=== PATIENT | female | born 1980 | race Caucasian/White ===

== ENCOUNTER → 2016-09-16 | Outpatient (CLI) | payer BC, OTHER ==
[~2016-09-16] MED LIST: ACHYD1T PO; AMLO5TAB2 PO; AMLODIPINE PO; CPR250T PO; CYCL10TA9 PO; HYOS0.1216 PO; IBUP-1773 PO; KETO10TA PO; OXYC-197 PO; PHEN200T27 PO; PROP1TAB77; SULF1TAB38
--- NOTE | 2016-09-16 15:42 | Diagnostic Imaging Report ---
INDICATION: Abnormal pelvic bleeding TECHNIQUE: Multiple real time bello scale sonographic images were obtained of the pelvis transabdominally and endovaginally. CORRELATION STUDY: None FINDINGS: UTERUS/ENDOMETRIUM: Uterus measures 8.3 x 5.3 x 5.1 cm. There is slight heterogeneity about the anterior fundus and could reflect perhaps a fibroid. Endometrium is at the most upper limits of normal in thickness for a premenopausal patient at 15 mm. RIGHT OVARY: Not visualized. LEFT OVARY: 4.9 x 4.3 x 2.3 cm. Hypoechoic mass most compatible cyst at 2.4 x 1.9 x 2.3 cm. Probable additional smaller cysts and/or follicles are present, as well. Color flow is demonstrated to the left ovary. No significant free pelvic fluid. IMPRESSION: 1. Endometrial thickness is at the most upper limits of normal in thickness for a premenopausal patient. Given this along with the history of abnormal bleeding, would recommend followup pelvic ultrasound, preferably a different phase of the patient's menstrual cycle to exclude potential hyperplasia or less likely carcinoma and/or polyp. Patient had normal endometrial thickening on examination of 12/14/2015. Dictated by: Dictated on workstation # [id number]
== END ==
LOC: RAD 12:14
PROVIDERS: ATTEND Obstetrics & Gynecology
DX: N93.8 Other specified abnormal uterine and vaginal bleeding (principal)
CPT/HCPCS: 76830; 76856

== ENCOUNTER → 2017-09-12 | Outpatient (CLI) | payer BC ==
--- NOTE | 2017-09-12 13:49 | Diagnostic Imaging Report ---
INDICATION: survey, vanishing twin syndrome. FINDINGS: The previous OB ultrasound exam performed on 07/07/2017 noted a single live fetus of approximately 21 weeks gestation plus/minus 1.5 weeks. There are no abnormalities identified although the lateral ventricles, cord insertion, and three-vessel cord were not well imaged. On this exam, the fetus is again visualized. The fetus is in breech presentation. heart motion was noted and a rate of 135 BPM was recorded. There were no abnormalities identified. In particular, the ventricles, three-vessel cord, and cord insertion were felt to be within normal limits. The growth parameters were not obtained for this study. The placenta is posterior and there is no previa. The amniotic fluid volume is within normal limits. The cervix is visualized and measures 5.7 cm (normal greater than 3 cm). IMPRESSION: 1. There is a single live fetus of approximately 29 weeks 2 days gestation plus/minus 1.5 weeks. The EDC remains 11/26/2017. 2. There were no abnormalities identified. In particular, the ventricles, three-vessel cord, and cord insertion are within normal limits. TECHNIQUE: Multiple real-time grayscale images were obtained over the gravid uterus. COMPARISON: None FINDINGS: Biometrical measurements are as follows: Biparietal cm, age weeks days. Head circumference cm, age weeks days. Abdominal circumference cm, age weeks days. Femur length cm, age weeks days. Sonographic estimate age: weeks days. Sonographic estimated date of delivery: . Estimated Weight: gm (+/- gm). LMP percentile: %. heart rate: beats per minute. number: of . IMPRESSION: Dictated by: Dictated on workstation # [id number]
== END ==
LOC: RAD 08-03 10:13
PROVIDERS: ATTEND Obstetrics & Gynecology
DX: Z36.89 Encounter for other specified antenatal screening (principal); Z3A.29 29 weeks gestation of pregnancy
CPT/HCPCS: 76816

== ENCOUNTER → 2017-11-01 | Outpatient (CLI) | payer BC ==
--- NOTE | 2017-11-01 17:17 | Diagnostic Imaging Report ---
INDICATION: Measuring large for gestational age. TECHNIQUE: Multiple real-time grayscale images were obtained over the gravid uterus. COMPARISON: 09/22/2017. FINDINGS: There is a single live intrauterine in a cephalic presentation. Placenta is posteriorly located and heterogeneous in echogenicity. The JELLY is normal at 11.9 cm. Due to advanced gestational age, maternal adnexa are not visualized. Biometrical measurements are as follows: Biparietal 9.33 cm, age 38 weeks 0 days. Head circumference 34.26 cm, age 39 weeks 4 days. Abdominal circumference 34.62 cm, age 38 weeks 4 days. Femur length 7.66 cm, age 39 weeks 2 days. Sonographic estimate age: 38 weeks 6 days. Sonographic estimated date of delivery: 11/09/17. Estimated Weight: 3573 gm (+/- 522 gm). LMP percentile: 96%. heart rate: Not assessed. However, heart motion was identified per technologist's note. number: 1 of 1. IMPRESSION: 1. Single live intrauterine with an average ultrasound age of 38 weeks and 6 days. 2. weight is 96th percentile for gestational age. Dictated by: Dictated on workstation # [id number]
== END ==
LOC: RAD 12:45
PROVIDERS: ATTEND Obstetrics & Gynecology
DX: O36.63X0 Maternal care for excessive fetal growth, third trimester, not applicable or unspecified (principal); Z3A.36 36 weeks gestation of pregnancy
CPT/HCPCS: 76816

== ENCOUNTER 2017-11-10 12:15 | Inpatient (IN) | payer BC ==
[~2017-11-10] VITALS: Ht 177.8 cm; Wt 127.9 kg
[2017-11-10] MEDS ORDERED: FAMOTIDINE 20MG/2ML IV (PEPCID) IV ONE (12:30)
[2017-11-10] MEDS ORDERED: METOCLOPRAMIDE INJ 10 MG/2 ML (REGLAN) IV ONE (12:30)
[2017-11-10] MEDS ORDERED: CITRIC ACID/SOB CIT (BICITRA) 30 ML UDC PO ONE (12:30)
[2017-11-10] MEDS ORDERED: CATHETER FLUSH 10 ML SYR IV PRN (12:30)
--- NOTE | 2017-11-10 12:34 | Progress Note-Pre Operative ---
Pre-Operative Progress Note H&P Reviewed The H&P was reviewed, patient examined and no changes noted. Date Seen by Provider: Nov 10, 2017 Time Seen by Provider: 12:35 Date H&P Reviewed: Nov 10, 2017 Time H&P Reviewed: 12:30 Pre-Operative Diagnosis: chronic hypertension with exacerbation, previous section TYRA PALM DO Nov 10, 2017 12:34
[2017-11-10 12:40] VITALS: BP 150/82
[2017-11-10] MEDS ORDERED: ceFAZolin INJECTION 1,000 MG in NS (IVPB) 100 ML IV ONE (12:45)
[2017-11-10 13:05] LABS: BASOPHILS % (AUTO) 0 % (0-10); EOSINOPHILS # (AUTO) 0.1 10^3/uL (0.0-0.3); EOSINOPHILS % (AUTO) 1 % (0-10); HEMATOCRIT 35 % (35-52); LYMPHOCYTES # (AUTO) 2.2 X 10^3 (1.0-4.0); LYMPHOCYTES % (AUTO) 15 % (12-44); MEAN CORPUSCULAR HEMOGLOBIN 30 PG (25-34); MEAN CORPUSCULAR HGB CONC 35 G/DL (32-36); MEAN CORPUSCULAR VOLUME 87 FL (80-99); MEAN PLATELET VOLUME 9.9 FL (7.4-10.4); MONOCYTES # (AUTO) 0.8 X 10^3 (0.0-1.0); MONOCYTES % (AUTO) 6 % (0-12); NEUTROPHILS # (AUTO) 11.4 X 10^3 (1.8-7.8); NEUTROPHILS % (AUTO) 78 % (42-75); PLATELET COUNT 294 10^3/uL (130-400); RED BLOOD COUNT 3.98 10^6/uL (4.35-5.85); RED CELL DISTRIBUTION WIDTH 13.1 % (10.0-14.5); WHITE BLOOD COUNT 14.5 10^3/uL (4.3-11.0)
[2017-11-10 13:21] LABS: BILIRUBIN,URINE NEGATIVE (NEGATIVE); CLARITY,URINE SLIGHTLY CLOUDY; COLOR,URINE YELLOW; GLUCOSE, URINE (UA) NEGATIVE (NEGATIVE); KETONES,URINE NEGATIVE (NEGATIVE); LEUKOCYTE ESTERASE ,URINE 3+ (NEGATIVE); NITRITE,URINE NEGATIVE (NEGATIVE); PH,URINE 7 (5-9); PROTEIN,URINE NEGATIVE (NEGATIVE); UROBILINOGEN,URINE NORMAL (NORMAL)
[2017-11-10 13:23] LABS: ALANINE AMINOTRANSFERASE 21 U/L (0-55); ALBUMIN 3.6 GM/DL (3.2-4.5); ALKALINE PHOSPHATASE 133 U/L (40-136); BILIRUBIN,TOTAL 0.4 MG/DL (0.1-1.0); BUN/CREATININE RATIO 12; CALCIUM 9.5 MG/DL (8.5-10.1); CARBON DIOXIDE 22 MMOL/L (21-32); CHLORIDE 108 MMOL/L (98-107); CREATININE SERUM 0.66 MG/DL (0.60-1.30); GFR ESTIMATED > 60; GLUCOSE 83 MG/DL (70-105); POTASSIUM 3.7 MMOL/L (3.6-5.0); SODIUM 139 MMOL/L (135-145); URIC ACID 6.1 MG/DL (2.6-7.2)
[2017-11-10] MEDS: LACTATED RINGERS 1,000 ML IV PRN ×2 (13:26→15:00)
[2017-11-10 13:29] LABS: BACTERIA,URINE LARGE /HPF
[2017-11-10] MEDS ORDERED: OXYTOCIN/NORMAL SALINE 1,000 ML IV ONE (13:40)
[2017-11-10] MEDS ORDERED: fentaNYL INJECTION 100 MCG/2 ML AMP ONE (13:40)
[2017-11-10] MEDS ORDERED: INFLUENZA TRIvalent 2017-2018 0.5 ML/45 MCG SYR IM ONE (13:45)
[2017-11-10] MEDS ORDERED: D5 LR IV SOLUTION 1,000 ML IV SCH (14:55)
[2017-11-10] MEDS ORDERED: OXYTOCIN/NORMAL SALINE 500 ML IV SCH (14:55)
--- NOTE | 2017-11-10 14:55 | Cesarean Section Operative ---
Procedure Procedure Note Pre-operative Diagnosis: Marni Jeter is a 38 /Para 2 /2 ,Gestational Age 37 5/7 weeks, chronic hypertension with exacerbation, transverse presentation, advanced maternal age in multipara Post-operative Diagnosis: same, cephalic unstable presentation Procedure: [Repeat low transverse section Physician: TYRA PALM Estimated blood loss: 600 mL Disposition: stable Findings: Viable male , Apgars 8/8, weight 8#5oz, intact placenta, 3vc, normal appearing uterus, tubes, and ovaries. Indications: Marni Jeter is a 37 /Para 2 /2 ,Gestational Age 37 5/7 weeks, chronic hypertension with symptomatic exacerbation, transverse presentation, advanced maternal age in multipara. she has had elevated blood pressures treated in with worsening blood pressures despite increasing blood pressure medications and taking her off work. She has been oscar, in addition, presentation was transverse in the office yesterday. Procedure Details: The patient was seen in pre-op and the procedure was discussed with the patient in full, including the risks, benefits, and alternatives. All questions were answered. The patient was taken to the operating room and a time out was performed, verifying patient and procedure. After spinal anesthesia was placed by our anesthesia colleagues, the patient was placed in the dorsal supine with leftward tilt for uterine displacement.~ Her abdomen was then prepped and draped in the typical sterile fashion. A Pfannenstiel skin incision was made using a scalpel and carried down through the underlying fascia. The fascia was incised in the midline and tented up using Irineo clamps. On both the inferior and superior fascia side the rectus muscle was dissected off bluntly and sharply using Black scissors. The peritoneum was identified and entered bluntly in the midline. This was then stretched laterally using manual strength. After entering the abdominal cavity and confirming lack of intraperitoneal adhesions, an extra-large Luis retractor was placed and the lower uterine segment was visualized. The vesicouterine peritoneum was advanced over the lower uterine segment. A bladder flap was created with the use of Metzenbaum scissors.~ A scalpel was utilized to make a low transverse uterine incision. Amniotomy was performed with an Allis clamp with return of clear fluid. The infant's head was grasped and brought to the level of the incision. It was delivered with assistance of the silastic suction. Fundal pressure was applied and infant was delivered without difficulty. Mouth and nares were suctioned with bulb suction. After the umbilical cord was clamped and cut, the infant was handed off to the pediatric staff. A sample of cord blood was then obtained. The placenta was delivered intact via uterine massage. The uterus was cleared of all clots and debris. The uterine incision was closed using 0 Vicryl in a running locked fashion. A second imbricated layer was placed using 0 Vicryl in a running fashion as well. The gutters were cleared of all clots and debris. Again the hysterotomy site was examined and hemostasis was observed. The bilateral tubes and ovaries appeared normal. The peritoneum was closed using 3- 0 Vicryl in a running fashion. The fascia was closed with 0 Vicryl in a running fashion. The subcutaneous space was hemostatic, and irrigated. The subcutaneous space was closed with 3-0 Vicryl in several single interrupted stitches. The skin was then closed using 4-0 Monocryl in a running subcuticular fashion. The skin edges were reapproximated together and were hemostatic. A pressure dressing was applied. All sponge, lap and needle counts were correct at the end of the procedure per nursing. Vitals - Labs Vital Signs - I&O Vital Signs Date Time Temp Pulse Resp B/P (MAP) Pulse Ox O2 Delivery O2 Flow Rate FiO2 11/10/17 12:40 98.0 93 18 150/82 (104) Room Air Labs Laboratory Tests 11/10/17 12:30: Urine Color YELLOW, Urine Clarity SLIGHTLY CLOUDY, Urine pH 7, Urine Specific Antimony 1.010L, Urine Protein NEGATIVE, Urine Glucose (UA) NEGATIVE, Urine Ketones NEGATIVE, Urine Nitrite NEGATIVE, Urine Bilirubin NEGATIVE, Urine Urobilinogen NORMAL, Urine Leukocyte Esterase 3+H, Urine RBC (Auto) 2+H, Urine RBC 2-5H, Urine WBC 2-5, Urine Squamous Epithelial Cells 10-25H, Urine Crystals NONE, Urine Bacteria LARGEH, Urine Casts NONE, Urine Mucus NEGATIVE, Urine Culture Indicated NO 11/10/17 12:45: White Blood Count 14.5H, Red Blood Count 3.98L, Hemoglobin 12.0, Hematocrit 35, Mean Corpuscular Volume 87, Mean Corpuscular Hemoglobin 30, Mean Corpuscular Hemoglobin Concent 35, Red Cell Distribution Width 13.1, Platelet Count 294, Mean Platelet Volume 9.9, Neutrophils (%) (Auto) 78H, Lymphocytes (%) (Auto) 15 , Monocytes (%) (Auto) 6, Eosinophils (%) (Auto) 1, Basophils (%) (Auto) 0, Neutrophils # (Auto) 11.4H, Lymphocytes # (Auto) 2.2, Monocytes # (Auto) 0.8, Eosinophils # (Auto) 0.1, Basophils # (Auto) 0.0, Sodium Level 139, Potassium Level 3.7, Chloride Level 108H, Carbon Dioxide Level 22, Anion Gap 9, Blood Urea Nitrogen 8, Creatinine 0.66, Estimat Glomerular Filtration Rate > 60, BUN/ Creatinine Ratio 12, Glucose Level 83, Uric Acid 6.1, Calcium Level 9.5, Total Bilirubin 0.4, Aspartate Amino Transf (AST/SGOT) 20, Alanine Aminotransferase ( ALT/SGPT) 21, Alkaline Phosphatase 133, Lactate Dehydrogenase 172, Total Protein 7.0, Albumin 3.6 TYRA PALM DO Nov 10, 2017 14:55
[2017-11-10] MEDS ORDERED: TETANUS,DIPTH,PERTUSS P/F (BOOSTRIX) 0.5 ML VIAL IM SCH (15:00)
[2017-11-10] MEDS ORDERED: HYDROmorphone (DILAUDID) 2 MG/ML VIAL IVP PRN (15:00)
[2017-11-10] MEDS ORDERED: ONDANSETRON 4 MG/2 ML (SDV) Z0FRAN IVP PRN (15:00)
[2017-11-10] MEDS ORDERED: MEASLES,MUMPS,RUBELLA 1 EA INJ SC SCH (15:00)
[2017-11-10] MEDS ORDERED: PHENYLEPHRINE 100 MCG/ML 10 ML (ANESTHESIA) SYR ONE (15:01)
[2017-11-10] MEDS: KETOROLAC 30 MG/ML VIAL IVP SCH ×2 (16:09→21:16)
[2017-11-10 16:19] VITALS: BP 143/96
[2017-11-10] MEDS ORDERED: PNV#1COM11 PO (16:21)
[2017-11-10] MEDS: HYDROcodone/APAP 5 MG/325 MG (LORTAB) TAB PO PRN ×2 (17:12→22:00)
[2017-11-10 21:15] VITALS: BP 141/91
[2017-11-10] MEDS: DOCUSATE SODIUM 100 MG (COLACE) CAP PO SCH (21:16)
[2017-11-11] MEDS: KETOROLAC 30 MG/ML VIAL IVP SCH (02:25)
[2017-11-11 02:30] VITALS: BP 138/80
[2017-11-11] MEDS: HYDROcodone/APAP 5 MG/325 MG (LORTAB) TAB PO PRN ×3 (04:50→19:13)
[2017-11-11 06:18] LABS: BASOPHILS # (AUTO) 0.1 10^3/uL (0.0-0.1); BASOPHILS % (AUTO) 0 % (0-10); EOSINOPHILS # (AUTO) 0.2 10^3/uL (0.0-0.3); EOSINOPHILS % (AUTO) 1 % (0-10); HEMATOCRIT 32 % (35-52); HEMOGLOBIN 10.9 G/DL (11.5-16.0); LYMPHOCYTES # (AUTO) 2.7 X 10^3 (1.0-4.0); LYMPHOCYTES % (AUTO) 20 % (12-44); MEAN CORPUSCULAR HEMOGLOBIN 30 PG (25-34); MEAN CORPUSCULAR HGB CONC 34 G/DL (32-36); MEAN CORPUSCULAR VOLUME 88 FL (80-99); MEAN PLATELET VOLUME 10.1 FL (7.4-10.4); MONOCYTES % (AUTO) 7 % (0-12); NEUTROPHILS # (AUTO) 9.9 X 10^3 (1.8-7.8); NEUTROPHILS % (AUTO) 72 % (42-75); PLATELET COUNT 265 10^3/uL (130-400); RED CELL DISTRIBUTION WIDTH 13.2 % (10.0-14.5); WHITE BLOOD COUNT 13.8 10^3/uL (4.3-11.0)
[2017-11-11 06:20] VITALS: BP 137/79
--- NOTE | 2017-11-11 09:24 | Postpartum Progress Note ---
Post Op Post-operative Day #1 s/p RLTCS done at 37 5/7 weeks due to exacerbation of chronic hypertension. BP better since delivery Subjective: Patient is without complaints. Ambulating, voiding after cowan removed. Tolerating a regular diet without nausea or vomiting. Normal lochia. Pain is well controlled with oral pain medications. Passing flatus. breast feeding. Objective: Laboratory Tests Test 11/10/17 12:30 11/10/17 12:45 11/11/17 06:08 Range/Units Urine Color YELLOW Urine Clarity SLIGHTLY CLOUDY Urine pH 7 5-9 Urine Specific [place] 1.010 L 1.016-1.022 Urine Protein NEGATIVE NEGATIVE Urine Glucose (UA) NEGATIVE NEGATIVE Urine Ketones NEGATIVE NEGATIVE Urine Nitrite NEGATIVE NEGATIVE Urine Bilirubin NEGATIVE NEGATIVE Urine Urobilinogen NORMAL NORMAL MG/DL Urine Leukocyte Esterase 3+ H NEGATIVE Urine RBC (Auto) 2+ H NEGATIVE Urine RBC 2-5 H /HPF Urine WBC 2-5 /HPF Urine Squamous Epithelial Cells 10-25 H /HPF Urine Crystals NONE /LPF Urine Bacteria LARGE H /HPF Urine Casts NONE /LPF Urine Mucus NEGATIVE /LPF Urine Culture Indicated NO White Blood Count 14.5 H 13.8 H 4.3-11.0 10^3/uL Red Blood Count 3.98 L 3.60 L 4.35-5.85 10^6/uL Hemoglobin 12.0 10.9 L 11.5-16.0 G/DL Hematocrit 35 32 L 35-52 % Mean Corpuscular Volume 87 88 80-99 FL Mean Corpuscular Hemoglobin 30 30 25-34 PG Mean Corpuscular Hemoglobin Concent 35 34 32-36 G/DL Red Cell Distribution Width 13.1 13.2 10.0-14.5 % Platelet Count 294 265 130-400 10^3/uL Mean Platelet Volume 9.9 10.1 7.4-10.4 FL Neutrophils (%) (Auto) 78 H 72 42-75 % Lymphocytes (%) (Auto) 15 20 12-44 % Monocytes (%) (Auto) 6 7 0-12 % Eosinophils (%) (Auto) 1 1 0-10 % Basophils (%) (Auto) 0 0 0-10 % Neutrophils # (Auto) 11.4 H 9.9 H 1.8-7.8 X 10^3 Lymphocytes # (Auto) 2.2 2.7 1.0-4.0 X 10^3 Monocytes # (Auto) 0.8 1.0 0.0-1.0 X 10^3 Eosinophils # (Auto) 0.1 0.2 0.0-0.3 10^3/uL Basophils # (Auto) 0.0 0.1 0.0-0.1 10^3/uL Sodium Level 139 135-145 MMOL/L Potassium Level 3.7 3.6-5.0 MMOL/L Chloride Level 108 H 98-107 MMOL/L Carbon Dioxide Level 22 21-32 MMOL/L Anion Gap 9 5-14 MMOL/L Blood Urea Nitrogen 8 7-18 MG/DL Creatinine 0.66 0.60-1.30 MG/DL Estimat Glomerular Filtration Rate > 60 BUN/Creatinine Ratio 12 Glucose Level 83 70-105 MG/DL Uric Acid 6.1 2.6-7.2 MG/DL Calcium Level 9.5 8.5-10.1 MG/DL Total Bilirubin 0.4 0.1-1.0 MG/DL Aspartate Amino Transf (AST/SGOT) 20 5-34 U/L Alanine Aminotransferase (ALT/SGPT) 21 0-55 U/L Alkaline Phosphatase 133 40-136 U/L Lactate Dehydrogenase 172 125-220 U/L Total Protein 7.0 6.4-8.2 GM/DL Albumin 3.6 3.2-4.5 GM/DL VS - Last 72 Hours, by Label 11/10/17 11/10/17 11/10/17 11/11/17 12:40 16:19 21:15 02:30 Temp 98.0 96.4 97.9 Pulse 93 86 89 88 Resp 18 18 18 18 B/P (MAP) 150/82 (104) 143/96 (112) 141/91 (108) 138/80 (99) Pulse Ox 98 96 96 O2 Delivery Room Air Room Air Room Air Room Air 11/11/17 06:20 Temp 98.6 Pulse 83 Resp 18 B/P (MAP) 137/79 (98) Pulse Ox 96 O2 Delivery Room Air Physical Exam: General - Alert and oriented, no apparent distress Abdomen - Soft, appropriately tender to palpation, non-distended, fundus firm at umbilicus Incision - clean, dry and intact; no erythema or induration, no drainage Extremities - 1+ edema, negative Balbir's bilaterally Assessment: 1. post-operative day # 1, status post RLTCS 2. Chronic hypertension with exacerbation. Recovering well, hemodynamically stable 3. Acute blood loss anemia Plan: Routine post-operative care. Encourage breast feeding. Encourage ambulation. VTE prophylaxis: SCDs. Ferrous sulfate supplementation. Plan for discharge tomorrow Vitals - Labs Vital Signs - I&O Vital Signs Date Time Temp Pulse Resp B/P (MAP) Pulse Ox O2 Delivery O2 Flow Rate FiO2 11/11/17 06:20 98.6 83 18 137/79 (98) 96 Room Air 11/11/17 02:30 97.9 88 18 138/80 (99) 96 Room Air 11/10/17 21:15 89 18 141/91 (108) 96 Room Air 11/10/17 16:19 96.4 86 18 143/96 (112) 98 Room Air 11/10/17 12:40 98.0 93 18 150/82 (104) Room Air I & O 11/11/17 07:00 Intake Total 4420 ml Output Total 2100 ml Balance 2320 ml Labs Laboratory Tests 11/10/17 12:30: Urine Color YELLOW, Urine Clarity SLIGHTLY CLOUDY, Urine pH 7, Urine Specific [place] 1.010L, Urine Protein NEGATIVE, Urine Glucose (UA) NEGATIVE, Urine Ketones NEGATIVE, Urine Nitrite NEGATIVE, Urine Bilirubin NEGATIVE, Urine Urobilinogen NORMAL, Urine Leukocyte Esterase 3+H, Urine RBC (Auto) 2+H, Urine RBC 2-5H, Urine WBC 2-5, Urine Squamous Epithelial Cells 10-25H, Urine Crystals NONE, Urine Bacteria LARGEH, Urine Casts NONE, Urine Mucus NEGATIVE, Urine Culture Indicated NO 11/10/17 12:45: White Blood Count 14.5H, Red Blood Count 3.98L, Hemoglobin 12.0, Hematocrit 35, Mean Corpuscular Volume 87, Mean Corpuscular Hemoglobin 30, Mean Corpuscular Hemoglobin Concent 35, Red Cell Distribution Width 13.1, Platelet Count 294, Mean Platelet Volume 9.9, Neutrophils (%) (Auto) 78H, Lymphocytes (%) (Auto) 15 , Monocytes (%) (Auto) 6, Eosinophils (%) (Auto) 1, Basophils (%) (Auto) 0, Neutrophils # (Auto) 11.4H, Lymphocytes # (Auto) 2.2, Monocytes # (Auto) 0.8, Eosinophils # (Auto) 0.1, Basophils # (Auto) 0.0, Sodium Level 139, Potassium Level 3.7, Chloride Level 108H, Carbon Dioxide Level 22, Anion Gap 9, Blood Urea Nitrogen 8, Creatinine 0.66, Estimat Glomerular Filtration Rate > 60, BUN/ Creatinine Ratio 12, Glucose Level 83, Uric Acid 6.1, Calcium Level 9.5, Total Bilirubin 0.4, Aspartate Amino Transf (AST/SGOT) 20, Alanine Aminotransferase ( ALT/SGPT) 21, Alkaline Phosphatase 133, Lactate Dehydrogenase 172, Total Protein 7.0, Albumin 3.6 11/11/17 06:08: White Blood Count 13.8H, Red Blood Count 3.60L, Hemoglobin 10.9L, Hematocrit 32L , Mean Corpuscular Volume 88, Mean Corpuscular Hemoglobin 30, Mean Corpuscular Hemoglobin Concent 34, Red Cell Distribution Width 13.2, Platelet Count 265, Mean Platelet Volume 10.1, Neutrophils (%) (Auto) 72, Lymphocytes (%) (Auto) 20 , Monocytes (%) (Auto) 7, Eosinophils (%) (Auto) 1, Basophils (%) (Auto) 0, Neutrophils # (Auto) 9.9H, Lymphocytes # (Auto) 2.7, Monocytes # (Auto) 1.0, Eosinophils # (Auto) 0.2, Basophils # (Auto) 0.1 TYRA PALM DO Nov 11, 2017 09:24
[2017-11-11] MEDS ORDERED: IBUPROFEN 600 MG (MOTRIN) TAB PO ONE (10:04)
[2017-11-11 10:09] VITALS: BP 147/87
[2017-11-11] MEDS: IBUPROFEN 600 MG (MOTRIN) TAB PO SCH ×3 (10:11→21:56)
[2017-11-11] MEDS: FERROUS SULF 325 MG (IRON) TAB PO SCH (10:11)
[2017-11-11] MEDS: amLODIPine 5 MG (NORVASC) TAB PO SCH (10:12)
[2017-11-11] MEDS: DOCUSATE SODIUM 100 MG (COLACE) CAP PO SCH ×2 (10:12→19:13)
[2017-11-11 12:17] VITALS: BP 134/82
[2017-11-11 15:55] VITALS: BP 140/83
--- NOTE | 2017-11-11 16:10 | Anesthesia-Regional Post-Op ---
Regional Patient Condition Mental Status: Alert, Oriented x3 Circulation: Same as Pre-Op Headache: Absent Sensation: Full Recovery Motor Block: Absent Post Op Complications Complications None Follow Up Care/Instructions Patient Instructions None needed. Anesthesia/Patient Condition Patient is doing well, no complaints, stable vital signs, no apparent adverse anesthesia problems. No complications reported per nursing. [place] [facility] [place] No CLINTON CARLOS CRNA Nov 11, 2017 16:10
[2017-11-11 21:55] VITALS: BP 131/85
[2017-11-12] MEDS: HYDROcodone/APAP 5 MG/325 MG (LORTAB) TAB PO PRN ×2 (01:11→11:52)
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
--- OUTSIDE RECORDS SUMMARY | 2017-11-12 04:26 | XMS REPORT ---
Author Author SHERI CULLEN [facility] [employer] Address Unknown Phone Unavailable Care Team Providers Care Hairpiece Stylist Name Role Phone SHERI CULLEN CP Unavailable Allergies, Adverse Reactions, Alerts Substance Reaction Event Type N.K.D.A. Info Not Available Non Drug Allergy Problems Problem Type Condition Code Onset Dates Condition Status Assessment Dental caries K02.9 Active Problem Elevated blood pressure reading without diagnosis of hypertension 796.2 Active Problem Other general counseling and advice for contraceptive management V25.09 Active Problem Essential hypertension I10 Active Problem General counseling for initiation of other contraceptive measures V25.02 Active Assessment Essential hypertension I10 Active Problem Leukorrhea, not specified as infective 623.5 Active Problem Encounter for insertion of intrauterine contraceptive device V25.11 Active Medications Medication Code System Code Instructions Start Date End Date Status Dosage Norvasc [facility] [id number] Orally Once a day 1 tablet Amoxicillin [facility] [id number] 500 MG Orally Once a day Jul 24, 2015Jul 2 tabs po x1 then 1 tab tid x 3 days Procedures Procedure Coding System Code Date Office Visit, Est Pt., Level 3 CPT-4 68547 Jul 24, 2015 Vital Signs Date/Time: Jul 24, 2015 Temperature 98.6 F Weight 241.5 lbs Height 69 in BMI 35.66 Index Blood Pressure Diastolic 90 mmHg Blood Pressure Systolic 152 mmHg Cardiac Monitoring Heart Rate 88 bpm Results No Known Results Summary Purpose [employer] Submission
--- OUTSIDE RECORDS SUMMARY | 2017-11-12 04:27 | XMS REPORT ---
Author Author LEONARDA KIRKLAND Organization [employer] Address Unknown Phone Unavailable Care Team Providers Care De Alcholizer Name Role Phone LEONARDA KIRKLAND CP Unavailable Allergies No Known Allergies Problems Problem Type Condition Code Onset Dates Condition Status Problem Encounter for insertion of intrauterine contraceptive [...]
--- OUTSIDE RECORDS SUMMARY | 2017-11-12 04:27 | XMS REPORT ---
Author Author SHERI CULLEN [facility] [employer] Address Unknown Phone Unavailable Care Team Providers Care Zoning Administrator Name Role Phone SHERI CULLEN CP Unavailable Allergies, Adverse Reactions, Alerts Substance Reaction Event Type N.K.D.A. Info Not Available Non Drug Allergy Problems Problem Type Condition Code Onset Dates Condition Status Problem Elevated blood pressure reading without diagnosis [...] Instructions Start Date End Date [facility] D[facility] [id number] Orally Once a day 1 tablet Procedures Procedure Coding System Code Date Office Visit, Est Pt., Level 3 CPT-4 84264 Jun 23, 2015 Vital Signs Date/Time: Jun 23, 2015 Temperature 97.4 F Weight 241.7 lbs Height 69 in BMI 35.69 Index Blood Pressure Diastolic 108 mmHg Blood Pressure Systolic 162 mmHg Cardiac Monitoring Heart Rate 80 bpm Results No Known Results Summary Purpose [employer] Submission
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
--- OUTSIDE RECORDS SUMMARY | 2017-11-12 04:27 | XMS REPORT ---
Author Author ELBA WEBSTER [facility] eClinicalWorks Address Unknown Phone Unavailable Care Team Providers Care Signaling Project Engineer Name Role Phone ELBA WEBSTER CP Unavailable Allergies, Adverse Reactions, Alerts Substance [...] of other contraceptive measures V25.02 Active Assessment Other specified disorders of Eustachian tube, bilateral H69.83 Active Problem Leukorrhea, not specified as infective 623.5 Active Problem Encounter for insertion of intrauterine contraceptive device V25.11 Active Medications Medication Code System Code Instructions Start Date End Date Status Dosage Norvasc [facility] [id number] 5 Orally Once a day 1 tablet Procedures Procedure Coding System Code Date Office Visit, Est Pt., Level 2 CPT-4 00654 Aug 17, 2015 Vital Signs Date/Time: Aug 17, 2015 Temperature 98.2 F Weight 243.2 lbs Height 69 in BMI 35.91 Index Blood Pressure Diastolic 96 mmHg Blood Pressure Systolic 160 mmHg Cardiac Monitoring Heart Rate 90 bpm Results No Known Results Summary Purpose eClinicalWorks Submission
[2017-11-12 05:40] VITALS: BP 129/78
[2017-11-12] MEDS: IBUPROFEN 600 MG (MOTRIN) TAB PO SCH ×2 (05:41→11:52)
--- NOTE | 2017-11-12 09:12 | Postpartum Progress Note ---
Post Op Post-operative Day #2 s/p RLTCS Subjective: Patient is without complaints. Ambulating, voiding after cowan removed. Tolerating a regular diet without nausea or vomiting. Normal lochia. Pain is well controlled with oral pain medications. Passing flatus. breast feeding. Objective: Vital Sign - Last 12Hours 11/11/17 11/12/17 21:55 05:40 Temp 98.0 98.3 Pulse 93 80 Resp 18 18 B/P (MAP) 131/85 (100) 129/78 (95) Pulse Ox 98 98 O2 Delivery Room Air Room Air Physical Exam: General - Alert and oriented, no apparent distress Abdomen - Soft, appropriately tender to palpation, non-distended, fundus firm at umbilicus Incision - clean, dry and intact; no erythema or induration, no drainage Extremities - no edema, negative Balbir's bilaterally Assessment: 1 post-operative day # 2, status post RLTCS 2. chronic hypertension with exacerbation, stable. Recovering well, hemodynamically stable 3. Acute blood loss anemia Plan: Routine post-operative care. Encourage breast feeding. Encourage ambulation. VTE prophylaxis: SCDs. Ferrous sulfate supplementation. Plan for discharge today Vitals - Labs Vital Signs - I&O Vital Signs Date Time Temp Pulse Resp B/P (MAP) Pulse Ox O2 Delivery O2 Flow Rate FiO2 11/12/17 05:40 98.3 80 18 129/78 (95) 98 Room Air 11/11/17 21:55 98.0 93 18 131/85 (100) 98 Room Air 11/11/17 15:55 97.5 93 18 140/83 (102) 99 Room Air 11/11/17 12:17 97.1 92 20 134/82 (99) 97 11/11/17 10:09 97.4 94 20 147/87 (107) 97 Room Air TYRA PALM DO Nov 12, 2017 09:12
[2017-11-12] MEDS ORDERED: ACHD5005 PO (09:13)
[2017-11-12] MEDS ORDERED: IBUP-1773 PO (09:13)
[2017-11-12] MEDS ORDERED: DOCU100C37 PO (09:13)
--- NOTE | 2017-11-12 09:17 | Discharge Inst-Women's Service ---
Discharge Inst-Women's Serv Depart Medication/Instructions New, Converted or Re-Newed RX: RX on Chart Final Diagnosis chronic hypertension with exacerbation Advanced maternal age, multiparous previous section Consults/Follow Up Additional Follow Up: Yes (1 week for incision check with Dick, 6 week pp exam. ) Activity Activity: Activity as Tolerated Driving Instructions: No Driving for 1 Week NO SMOKING: NO SMOKING Nothing Inside Vagina: No Douching, No [place], No Tampons Diet Discharge Diet: No Restrictions Symptoms to Report to : Swelling Increased, Bleeding Excessive, Pain Increased, Fever Over 101 Degrees F, Vaginal Bleeding Increase, Cramps in Feet or Legs, Vaginal Discharge Foul For Any Problems or Questions: Contact Your Physician Skin/Wound Care Infection Signs and Symptoms: Increased Redness, Foul Odor of Wound, Increased Drainage, Skin Itchy or Has a Rash, Increased Swelling, Temperature Above 101 F Operative Area Clean and Dry: Do Not Remove Bandage Stitches/Casa/Dermabond: Dermabond Bathing Instructions: TYRA Cao DO Nov 12, 2017 09:17
[2017-11-12] MEDS: FERROUS SULF 325 MG (IRON) TAB PO SCH (10:27)
[2017-11-12] MEDS: DOCUSATE SODIUM 100 MG (COLACE) CAP PO SCH (10:27)
[2017-11-12] MEDS: amLODIPine 5 MG (NORVASC) TAB PO SCH (10:27)
[2017-11-12 11:50] VITALS: BP 141/95
== END 2017-11-12 13:15 | disposition home or self-care (01) | DRG 766 ==
LOC: LDRP 12:15
PROVIDERS: ADMIT Obstetrics & Gynecology; ATTEND Obstetrics & Gynecology
PROC: 10D00Z1 Extraction of Products of Conception, Low, Open Approach (ICD-10-PCS; principal; 2017-11-10 13:52)
DX: O10.013 Pre-existing essential hypertension complicating pregnancy, third trimester (principal); O32.2XX0 Maternal care for transverse and oblique lie, not applicable or unspecified; O99.03 Anemia complicating the puerperium; D64.9 Anemia, unspecified; O34.211 Maternal care for low transverse scar from previous cesarean delivery; Z3A.37 37 weeks gestation of pregnancy; Z37.0 Single live birth; Z23 Encounter for immunization
CPT/HCPCS: 36415; 80053; 81000; 83033; 83615; 84550; 85025; 86850; 86900; 86901; 90715; 94664

== ENCOUNTER 2018-10-09 05:17 | Emergency (ER) | payer BC ==
[~2018-10-09] VITALS: Ht 177.8 cm; Wt 117.9 kg
[~2018-10-09 05:17] MED LIST changes: +ACHD5005 PO; -AMLO5TAB2 PO; +AMLO5TAB9 PO; +DOCU100C37 PO; -OXYC-197 PO; +OXYC1TAB87 PO; +PNV#1COM11 PO
[2018-10-09] MEDS ORDERED: fentaNYL INJECTION 100 MCG/2 ML AMP IVP STA (06:17)
[2018-10-09] MEDS ORDERED: NS IV 1000 ML 1,000 ML IV STA (06:17)
[2018-10-09] MEDS ORDERED: KETOROLAC 30 MG/ML VIAL IVP STA (06:17)
[2018-10-09 06:24] LABS: BASOPHILS # (AUTO) 0.1 10^3/uL (0.0-0.1); BASOPHILS % (AUTO) 1 % (0-10); EOSINOPHILS # (AUTO) 0.1 10^3/uL (0.0-0.3); EOSINOPHILS % (AUTO) 2 % (0-10); HEMATOCRIT 45 % (35-52); HEMOGLOBIN 14.9 G/DL (11.5-16.0); LYMPHOCYTES # (AUTO) 1.9 X 10^3 (1.0-4.0); LYMPHOCYTES % (AUTO) 20 % (12-44); MEAN CORPUSCULAR HEMOGLOBIN 29 PG (25-34); MEAN CORPUSCULAR HGB CONC 33 G/DL (32-36); MEAN CORPUSCULAR VOLUME 89 FL (80-99); MEAN PLATELET VOLUME 9.8 FL (7.4-10.4); MONOCYTES # (AUTO) 0.9 X 10^3 (0.0-1.0); MONOCYTES % (AUTO) 10 % (0-12); NEUTROPHILS # (AUTO) 6.2 X 10^3 (1.8-7.8); NEUTROPHILS % (AUTO) 67 % (42-75); PLATELET COUNT 332 10^3/uL (130-400); RED CELL DISTRIBUTION WIDTH 13.4 % (10.0-14.5); WHITE BLOOD COUNT 9.2 10^3/uL (4.3-11.0)
[2018-10-09] MEDS ORDERED: ONDANSETRON 4 MG/2 ML (SDV) Z0FRAN IVP ONE (06:30)
[2018-10-09 06:42] LABS: ALANINE AMINOTRANSFERASE 27 U/L (0-55); ALBUMIN 4.7 GM/DL (3.2-4.5); ALKALINE PHOSPHATASE 101 U/L (40-136); BILIRUBIN,TOTAL 0.6 MG/DL (0.1-1.0); BUN/CREATININE RATIO 9; CALCIUM 10.1 MG/DL (8.5-10.1); CARBON DIOXIDE 21 MMOL/L (21-32); CHLORIDE 106 MMOL/L (98-107); CREATININE SERUM 0.76 MG/DL (0.60-1.30); GFR ESTIMATED > 60; GLUCOSE 110 MG/DL (70-105); POTASSIUM 4.1 MMOL/L (3.6-5.0); SODIUM 140 MMOL/L (135-145); TOTAL PROTEIN 8.2 GM/DL (6.4-8.2)
--- NOTE | 2018-10-09 06:42 | ED Abdominal Pain ---
General Chief Complaint: Abdominal/GI Problems Stated Complaint: ABD PAIN Source of Information: Patient Exam Limitations: No Limitations History of Present Illness Date Seen by Provider: Oct 09, 2018 Time Seen by Provider: 06:10 Initial Comments Here with complaint of right upper quadrant abdominal pain that started at about 430 p.m. yesterday and continued to the night. Continues told this morning. States that she did not eat much yesterday and tried to get a little better which made things worse. Does have nausea but no vomiting. Denies diarrhea. Does have history of kidney stone many years ago. Denies fever. Patient is breast-feeding. Timing/Duration: 12 Hours Severity/Quality: Moderate Location: RUQ Radiation: Back Activities at Onset: None Modifying Factors: Worsens With Eating Associated Symptoms: Back Pain; No Chest Pain, No Fever/Chills; Nausea/Vomiting ; No Shortness of Air, No Weakness Allergies and Home Medications Allergies Coded Allergies: ampicillin (Verified Allergy, Unknown, RASH, 11/10/17) Home Medications Amlodipine Besylate 5 Mg Tablet, 10 MG PO DAILY, (Reported) Patient Home Medication List Home Medication List Reviewed: Yes Review of Systems Review of Systems Constitutional: see HPI; No chills, No fever EENTM: No Symptoms Reported Respiratory: No Symptoms Reported Cardiovascular: No Symptoms Reported Gastrointestinal: See HPI Genitourinary: No Symptoms Reported; Denies Pain, Denies Urgency Musculoskeletal: see HPI Skin: no symptoms reported All Other Systems Reviewed Negative Unless Noted: Yes Past Jimkcsu-Rrmmfa-Knfikg Hx Past Med/Social Hx: Reviewed Nursing Past Med/Soc Hx Patient Social History Alcohol Use: Denies Use Recreational Drug Use: No Smoking Status: Never a Smoker Recent Foreign Travel: No Contact w/Someone Who Travel: No Recent Hopitalizations: Yes (c section 5 years ago) Seasonal Allergies Seasonal Allergies: No Past Medical History Surgeries: Yes (LEFT ANKLE X2, ESWL AND STENT IN URETER) Section, Orthopedic Respiratory: No Cardiac: Yes Hypertension Neurological: No Reproductive Disorders: No Female Reproductive Disorders: Denies Sexually Transmitted Disease: No HIV/AIDS: No Genitourinary: No Gastrointestinal: No Musculoskeletal: No Endocrine: No HEENT: No Loss of Vision: Bilateral Hearing Impairment: Denies Cancer: No Psychosocial: No Integumentary: Yes (ELBOWS/ANKLES) Psoriasis Blood Disorders: No Adverse Reaction/Blood Tranf: No (N/A) Family Medical History Reviewed Nursing Family Hx Hypertension 19 MOTHER Kidney stones 19 MOTHER G8 BROTHER G8 SISTER Myocardial infarction 19 MOTHER Thyroid disease 19 MOTHER Physical Exam Vital Signs Vital Signs - First Documented 10/09/18 06:07 Temp 95.1 Pulse 96 Resp 17 B/P (MAP) 163/105 (124) O2 Delivery Room Air Capillary Refill : Height/Weight/BMI Height: 5'10.00" Weight: 282lbs. 0.0oz. 127.102570bb; 40.5 BMI Method:Stated General Appearance: WD/WN, no apparent distress HEENT: PERRL/EOMI, pharynx normal Neck: full range of motion, supple Respiratory: lungs clear, normal breath sounds Cardiovascular: regular rate, rhythm, no murmur Peripheral Pulses: 2+ Dorsalis Pedis (R), 2+ Left Dors-Pedis (L), 2+ Radial Pulses (R), 2+ Radial Pulses (L) Gastrointestinal: soft; No guarding, No rebound; tenderness (right upper quadrant and right flank) Extremities: non-tender, normal inspection Back: normal inspection, no vertebral tenderness, CVA tenderness (R); No CVA tenderness (L) Neurologic/Psychiatric: alert, oriented x 3 Skin: normal color, warm/dry Progress/Results/Core Measures Results/Orders Lab Results Laboratory Tests Test 10/09/18 06:13 10/09/18 06:48 Range/Units White Blood Count 9.2 4.3-11.0 10^3/uL Red Blood Count 5.08 4.35-5.85 10^6/uL Hemoglobin 14.9 11.5-16.0 G/DL Hematocrit 45 35-52 % Mean Corpuscular Volume 89 80-99 FL Mean Corpuscular Hemoglobin 29 25-34 PG Mean Corpuscular Hemoglobin Concent 33 32-36 G/DL Red Cell Distribution Width 13.4 10.0-14.5 % Platelet Count 332 130-400 10^3/uL Mean Platelet Volume 9.8 7.4-10.4 FL Neutrophils (%) (Auto) 67 42-75 % Lymphocytes (%) (Auto) 20 12-44 % Monocytes (%) (Auto) 10 0-12 % Eosinophils (%) (Auto) 2 0-10 % Basophils (%) (Auto) 1 0-10 % Neutrophils # (Auto) 6.2 1.8-7.8 X 10^3 Lymphocytes # (Auto) 1.9 1.0-4.0 X 10^3 Monocytes # (Auto) 0.9 0.0-1.0 X 10^3 Eosinophils # (Auto) 0.1 0.0-0.3 10^3/uL Basophils # (Auto) 0.1 0.0-0.1 10^3/uL Sodium Level 140 135-145 MMOL/L Potassium Level 4.1 3.6-5.0 MMOL/L Chloride Level 106 98-107 MMOL/L Carbon Dioxide Level 21 21-32 MMOL/L Anion Gap 13 5-14 MMOL/L Blood Urea Nitrogen 7 7-18 MG/DL Creatinine 0.76 0.60-1.30 MG/DL Estimat Glomerular Filtration Rate > 60 BUN/Creatinine Ratio 9 Glucose Level 110 H 70-105 MG/DL Calcium Level 10.1 8.5-10.1 MG/DL Corrected Calcium 8.5-10.1 MG/DL Total Bilirubin 0.6 0.1-1.0 MG/DL Aspartate Amino Transf (AST/SGOT) 27 5-34 U/L Alanine Aminotransferase (ALT/SGPT) 27 0-55 U/L Alkaline Phosphatase 101 40-136 U/L Total Protein 8.2 6.4-8.2 GM/DL Albumin 4.7 H 3.2-4.5 GM/DL Lipase 13 8-78 U/L Serum Test, Qualitative NEGATIVE NEGATIVE Urine Color YELLOW Urine Clarity CLEAR Urine pH 8 5-9 Urine Specific [place] 1.010 L 1.016-1.022 Urine Protein NEGATIVE NEGATIVE Urine Glucose (UA) NEGATIVE NEGATIVE Urine Ketones NEGATIVE NEGATIVE Urine Nitrite NEGATIVE NEGATIVE Urine Bilirubin NEGATIVE NEGATIVE Urine Urobilinogen NORMAL NORMAL MG/DL Urine Leukocyte Esterase NEGATIVE NEGATIVE Urine RBC (Auto) NEGATIVE NEGATIVE Urine RBC 0-2 /HPF Urine WBC NONE /HPF Urine Squamous Epithelial Cells 0-2 /HPF Urine Crystals PRESENT H /LPF Urine Amorphous Sediment RARE COLT PHOSPHATE H /LPF Urine Bacteria NEGATIVE /HPF Urine Casts NONE /LPF Urine Mucus NEGATIVE /LPF Urine Culture Indicated NO My Orders Orders - ILDA JAQUEZ MD Cbc With Automated Diff (10/09/18 06:17) Comprehensive Metabolic Panel (10/09/18 06:17) Hcg,Qualitative Serum (10/09/18 06:17) Lipase (10/09/18 06:17) Ua Culture If Indicated (10/09/18 06:17) Ondansetron Injection (Zofran Injectio (10/09/18 06:30) Ns Iv 1000 Ml (Sodium Chloride 0.9%) (10/09/18 06:17) Saline Lock/Iv-Start (10/09/18 06:17) Fentanyl Injection (Sublimaze Injection (10/09/18 06:17) Ketorolac Injection (Toradol Injection) (10/09/18 06:17) Us Gallbladder 95028 (10/09/18 07:17) Medications Given in ED Current Medications Medications Dose Ordered Sig/Guillermina Route Start Time Stop Time Status Last Admin Dose Admin Ondansetron HCl 4 mg ONCE ONCE IVP 10/09/18 06:30 10/09/18 06:31 DC 10/09/18 06:30 4 MG Vital Signs/I&O 10/09/18 06:07 Temp 95.1 Pulse 96 Resp 17 B/P (MAP) 163/105 (124) O2 Delivery Room Air Progress Progress Note : Progress Note Seen and evaluated. IV, labs, UA, normal saline 1 L bolus, Zofran 4 mg IV, fentanyl 50 g IV and Toradol 30 mg IV ordered. Monitor patient. 0800: Ultrasound gallbladder ordered. Monitor patient. 0910: Patient without significant pain currently. Pending ultrasound results. 1019: Ultrasound results noted. No significant gallbladder findings. Labs do not indicate any need for further evaluation at this point. Patient does likely need outpatient HIDA scan. I have called Dr. Doyle to set up follow-up with him. We will send a copy of the chart to his office. I did discuss with the patient the need for follow-up with him for further evaluation including further gallbladder evaluation and or upper endoscopy. Patient is comfortable with this plan. Discharged home with return precautions. Patient verbalize understanding instructions and agreement with plan. Departure Impression Primary Impression: Right upper quadrant abdominal pain Disposition: 01 HOME, SELF-CARE Condition: Improved Departure-Patient Inst. Decision time for Depature: 10:39 Referrals: NO,LOCAL PHYSICIAN (PCP/Family) Primary Care Physician Patient Instructions: Acute Abdomen (Belly Pain), Adult (DC) Add. Discharge Instructions: All discharge instructions reviewed with patient and/or family. Voiced understanding. Follow-up with Dr. Doyle this week for recheck and further evaluation. Call his office today for appointment. Follow-up with your Dr. within one week for recheck and further evaluation as needed. You may take Pepcid or the generic famotidine 20 mg twice daily for the next 7 days and then once daily thereafter as needed for stomach upset. Clear liquid or light diet for 24 hours and then advance as tolerated. Avoid fatty foods. Return for worse pain, fever, vomiting or weakness, breathing problems or other concerns as needed. You may take Tylenol/acetaminophen 1000 mg every 8 hours as needed for pain. Scripts Ondansetron (Ondansetron Odt) 4 Mg Tab.rapdis 4 MG PO Q6H PRN for NAUSEA/VOMITING, #8 TAB 0 Refills Prov: ILDA JAQUEZ MD 10/09/18 Copy Copies To 1: EVELIA DOYLE TIMOTHY D MD Oct 09, 2018 06:42
[2018-10-09 06:43] LABS: LIPASE 13 U/L (8-78)
[2018-10-09 06:58] LABS: BILIRUBIN,URINE NEGATIVE (NEGATIVE); CLARITY,URINE CLEAR; COLOR,URINE YELLOW; GLUCOSE, URINE (UA) NEGATIVE (NEGATIVE); KETONES,URINE NEGATIVE (NEGATIVE); LEUKOCYTE ESTERASE ,URINE NEGATIVE (NEGATIVE); NITRITE,URINE NEGATIVE (NEGATIVE); PH,URINE 8 (5-9); PROTEIN,URINE NEGATIVE (NEGATIVE); UROBILINOGEN,URINE NORMAL (NORMAL)
[2018-10-09 07:15] LABS: AMORPHOUS SEDIMENT,UR RARE AMOR PHOSPHATE /LPF; BACTERIA,URINE NEGATIVE /HPF; RBC,URINE 0-2 /HPF; SQUAMOUS EPITHELIAL CELL,UR 0-2 /HPF
--- NOTE | 2018-10-09 08:27 | NUR ---
TO SONO PER W/C
--- NOTE | 2018-10-09 08:59 | NUR ---
BACK FROM [facility]
--- NOTE | 2018-10-09 09:02 | NUR ---
TO ROOM REPORTS PAIN OK IF SHE SITS UP. WARM BLANKETS GIVEN
--- NOTE | 2018-10-09 09:41 | Diagnostic Imaging Report ---
PROCEDURE: US Gallbladder. TECHNIQUE: Multiple real-time grayscale images were obtained over the right upper quadrant in various projections. INDICATION: Abdominal pain, liver parenchyma appeared unremarkable. Portal venous flow in the normal direction. The gallbladder appeared normal and there is no abnormal distention of intra-or extrahepatic bile ducts. The right kidney is unobstructed. The visualized portions of the pancreas unremarkable. IMPRESSION: No abnormality identified in the right upper quadrant ultrasound. Dictated by: Dictated on workstation # [id number]
[2018-10-09] MEDS ORDERED: ONDA4TAB11 PO (10:41)
[2018-10-09 10:53] VITALS: BP 161/92
== END 2018-10-09 10:53 | disposition home or self-care (01) ==
LOC: EDUNIT# 05:17 → ER 05:20
DX: R10.11 Right upper quadrant pain (principal); I10 Essential (primary) hypertension; Z82.49 Family history of ischemic heart disease and other diseases of the circulatory system; Z88.0 Allergy status to penicillin; Z87.442 Personal history of urinary calculi; Z98.890 Other specified postprocedural states
CPT/HCPCS: 36415; 76705; 80053; 81000; 83690; 84703; 85025

== ENCOUNTER 2019-08-04 15:42 | Emergency (ER) | payer BC ==
[~2019-08-04] VITALS: Ht 177 cm; Wt 115.0 kg
[~2019-08-04 15:42] MED LIST changes: +ONDA4TAB11 PO
[2019-08-04] MEDS ORDERED: LACTATED RINGERS 1,000 ML IV ONE (16:12)
[2019-08-04] MEDS ORDERED: cefTRIAXone FOR IV USE 1,000 MG in WATER (STERILE) FOR INJECTION 10 ML IV ONE (16:15)
[2019-08-04 16:27] LABS: BILIRUBIN,URINE NEGATIVE (NEGATIVE); CLARITY,URINE CLEAR; COLOR,URINE YELLOW; GLUCOSE, URINE (UA) NEGATIVE (NEGATIVE); KETONES,URINE 1+ (NEGATIVE); LEUKOCYTE ESTERASE ,URINE NEGATIVE (NEGATIVE); NITRITE,URINE NEGATIVE (NEGATIVE); PROTEIN,URINE NEGATIVE (NEGATIVE)
[2019-08-04 16:33] LABS: BACTERIA,URINE FEW /HPF; SQUAMOUS EPITHELIAL CELL,UR 25-50 /HPF
[2019-08-04 16:44] LABS: BASOPHILS % (AUTO) 0 % (0-10); EOSINOPHILS # (AUTO) 0.1 10^3/uL (0.0-0.3); EOSINOPHILS % (AUTO) 1 % (0-10); HEMATOCRIT 40 % (35-52); HEMOGLOBIN 13.4 G/DL (11.5-16.0); LYMPHOCYTES # (AUTO) 1.8 X 10^3 (1.0-4.0); LYMPHOCYTES % (AUTO) 13 % (12-44); MEAN CORPUSCULAR HEMOGLOBIN 30 PG (25-34); MEAN CORPUSCULAR HGB CONC 34 G/DL (32-36); MEAN CORPUSCULAR VOLUME 87 FL (80-99); MEAN PLATELET VOLUME 9.7 FL (7.4-10.4); MONOCYTES # (AUTO) 0.6 X 10^3 (0.0-1.0); MONOCYTES % (AUTO) 5 % (0-12); NEUTROPHILS # (AUTO) 11.3 X 10^3 (1.8-7.8); NEUTROPHILS % (AUTO) 82 % (42-75); PLATELET COUNT 320 10^3/uL (130-400); RED CELL DISTRIBUTION WIDTH 14.4 % (10.0-14.5); WHITE BLOOD COUNT 13.9 10^3/uL (4.3-11.0)
[2019-08-04] MEDS ORDERED: ONDANSETRON 4 MG/2 ML (SDV) Z0FRAN IVP ONE ×2 (17:00→19:00)
[2019-08-04 17:01] LABS: ALBUMIN 4.2 GM/DL (3.2-4.5); BILIRUBIN,TOTAL 0.4 MG/DL (0.1-1.0); BUN/CREATININE RATIO 8; CARBON DIOXIDE 19 MMOL/L (21-32); CHLORIDE 106 MMOL/L (98-107); CREATININE SERUM 0.66 MG/DL (0.60-1.30); GFR ESTIMATED > 60; GLUCOSE 105 MG/DL (70-105); POTASSIUM 3.5 MMOL/L (3.6-5.0); SODIUM 137 MMOL/L (135-145); TOTAL PROTEIN 7.6 GM/DL (6.4-8.2)
[2019-08-04 17:17] LABS: ALANINE AMINOTRANSFERASE 14 U/L (0-55); ALKALINE PHOSPHATASE 72 U/L (40-136); AMYLASE 29 U/L (25-125); LIPASE 10 U/L (8-78); MAGNESIUM 1.7 MG/DL (1.6-2.4)
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
[2019-08-04] MEDS ORDERED: ONDA4TAB11 PO (18:22)
[2019-08-04] MEDS ORDERED: RX-ONDANSETRON 4 MG ODT (ZOFRAN) PPK #4 PO STA (18:22)
[2019-08-04 19:24] VITALS: BP 145/80
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
--- OUTSIDE RECORDS SUMMARY | 2019-08-29 09:37 | XMS REPORT | CCD ---
Author Author Marni Manuel Organization [facility] Address [address] [place] [address] Phone Unavailable Care Team Providers Care Wrong Address Clerk Name Role Phone [facility] D.[facility] PP Unavailable CCM Unavailable Summary Purpose Interface Exchange Insurance Providers Payer name Policy type / Coverage type Covered alliance party ID Effective Begin Date Effective End Date Blue Cross Blue Shield Blue Cross/Bl ue Shield [id number] 2016 Unknown Family History Family History data not found Social History Social History Element Codes Description Effective Dates Marital status Unknown S anila 10/06/2016 Number of children Unknown 2 10/06/2016 Employment Unknown Curre ntly employed 10/06/[address]: 7996072 Former smoker 10/06/[address]: 663417834 Never drinks alcohol 10/06/2016 Allergies, Adverse Reactions, Alerts Substance Reaction Codes Entered Date Inactivated Date Status * NO KNOWN FOOD MARYLOU RGIES Unknown 10/06/2016 No Inactive Date Active * NO KNOWN ENVIRONME NTAL ALLERGIES Unknown 10/06/2016 No Inactive Date Active _ Unknown 10/06/2016 No Inactive Date Active Past Medical History Illness Codes Condition Status Onset Date Resolved Date Anxiety disorder, un specified ICD-9: 300.00 ICD-10: F41.9 Active 10/06/2016 Unknown Essential (primary) hypertension ICD-9: 401.9 ICD-10: I10 Active 10/06/2016 Unknown Problems Condition Codes Effectiv e Dates Condition Status Anxiety disorder, un specified ICD-9: 300.00 ICD-10: F41.9 10/06/2016 Active Essential (primary) hypertension ICD-9: 401.9 ICD-10: I10 10/06/2016 Active Medications Medication Codes Instruc tions Start Date Stop Date Sta tus Fill Instructions Zoloft 25 mg tablet RxNorm: 165011 TAKE ONE-HALF TABLET BY MOUTH DAILY FOR 7 DAYS THEN INCREASE TO TAKE ONE TABLET BY MOUTH DAILY 11/01/2016 01/29/2017 Inactive Zoloft 25 mg tablet RxNorm: 079371 Take 1/2 tab PO daily x 7 days and then increase to 1 tab PO daily 10/06/2016 10/31/2016 Inactive Biotin Plus Keratin oral RxNorm: oral No Start D ate Active Norvasc 5 mg tablet RxNorm: 081161 1 Tablet(s) PO QD No Start Date Active Provera 10 mg tablet RxNorm: 6756567 1 Tablet(s) PO QD No Start Date Active Norvasc 10 mg tablet RxNorm: 455331 oral No Start Date 10/05/2016 Inactive Medication Administered No Medication Administered data Immunizations No Immunization data Assessments Condition Codes Effectiv e Dates Anxiety disorder, unspecified ICD-10 : F41.9 ICD-9: 300.00 10/06/2016 Essential (primary) hypertension ICD -10: I10 ICD-9: 401.9 10/06/2016 Reason For Visit Reason For Visit Effective Dates Notes ~generic 10/06/2016 Esta blishing care Results No Results data Review of Systems System Result Effective Dates Constitutional No night sweats 10/06/2016 Constitutional No recent illness 10/06/2016 Constitutional No fatigue 10/06/2016 Constitutional No fever 10/06/2016 Constitutional No insomnia 10/06/2016 Constitutional No weight loss 10/06/2016 Ears/Nose/Throat/Neck No hearing loss 10/06/2016 Ears/Nose/Throat/Neck No nasal discharge 10/06/2016 Ears/Nose/Throat/Neck No sinus congestion 10/06/2016 Ears/Nose/Throat/Neck No sore throat 10/06/2016 Cardiovascular No arrhythmia 10/06/2016 Cardiovascular No chest pain/pressure 10/06/2016 Cardiovascular No edema 10/06/2016 Cardiovascular No exercise intolerance 10/06/2016 Cardiovascular No orthopnea 10/06/2016 Cardiovascular No palpitations 10/06/2016 Cardiovascular No dyspnea 10/06/2016 Cardiovascular No near-syncope/dizziness 10/06/2016 Cardiovascular No syncope 10/06/2016 Respiratory No cough 10/2016 Respiratory No dyspnea 0 10/06/2016 Respiratory No pleuritic pain 10/06/2016 Respiratory No productive sputum 10/06/2016 Respiratory No wheezing 10/06/2016 Respiratory No chest congestion 10/06/2016 Respiratory chest tightness 10/06/2016 Gastrointestinal No abdominal pain 10/06/2016 Gastrointestinal No constipation 10/06/2016 Gastrointestinal No diarrhea 10/06/2016 Gastrointestinal No gastroesophageal reflu x 10/06/2016 Gastrointestinal No melena 10/06/2016 Gastrointestinal No nausea 10/06/2016 Gastrointestinal No vomiting 10/06/2016 Dermatologic No rash 10/2016 Dermatologic No scar 10/2016 Psychiatric anxiety 10/2016 Psychiatric No depression 10/06/2016 Psychiatric stress 10/06 Psychiatric No suicidality 10/06/2016 Genitourinary/Nephrology No dysuria 10/06/2016 Genitourinary/Nephrology No nocturia 10/06/2016 Genitourinary/Nephrology No urinary incontinence 10/06/2016 Musculoskeletal No muscle weakness 10/06/2016 Musculoskeletal No myalgias 10/06/2016 Musculoskeletal No stiffness 10/06/2016 Musculoskeletal No swelling 10/06/2016 Neurologic No dizziness 10/06/2016 Neurologic No headache 0 10/06/2016 Neurologic No neck pain 10/06/2016 Neurologic No syncope Endocrine No goiter 10/2016 Endocrine No hyperglycemia 10/06/2016 Endocrine No hypoglycemia 10/06/2016 Cardiovascular hypertension 10/06/2016 Respiratory chest tightness 10/06/2016 Physical Exam Exam Name System Name It em Name Status Result Effective Dates Notes Full Exam - General Constitutional general appearance Overall: well nourished 10/06/2016 None Full Exam - General Constitutional general appearance Overall: well developed 10/06/2016 None Full Exam - General Constitutional general appearance Overall: in no acute distress 10/06/2016 None Full Exam - General Eyes conjunctiva/eyelids Overall: conjunctiva clear 10/06/2016 None Full Exam - General Eyes conjunctiva/eyelids Overall: eyelids normal 10/06/2016 None Full Exam - General Ears/Nose/Throat external ear Overall: normal appearance 10/06/2016 None Full Exam - General Ears/Nose/Throat external nose Overall: benign appearance 10/06/2016 None Full Exam - General Ears/Nose/Throat lips/teeth/gingiva Overall: benign lips 10/06/2016 None Full Exam - General Ears/Nose/Throat oral cavity/pharynx/larynx Overall: oral mucosa clear 10/06/2016 None Full Exam - General Respiratory auscultation Overall: breath sounds clear bilater ally 10/06/2016 None Full Exam - General Respiratory respiratory effort/rhythm Overall: no retractions 10/06/2016 None Full Exam - General Respiratory respiratory effort/rhythm Overall: normal rate 10/06/2016 None Full Exam - General Cardiovascular auscultation of heart Overall: regular rate 10/06/2016 None Full Exam - General Cardiovascular auscultation of heart Overall: normal heart sounds 10/06/2016 None Full Exam - General Cardiovascular auscultation of heart Overall: no murmurs 10/06/2016 None Full Exam - General Cardiovascular inspection of carotid pulses Overall: strong, bilaterally equal, no bruits 10/06/2016 None Full Exam - General Cardiovascular inspection of pedal pulses Overall: strong, equal bilaterally 10/06/2016 None Full Exam - General Cardiovascular extremities Overall: no clubbing 10/06/2016 None Full Exam - General Cardiovascular extremities Overall: No edema 10/06/2016 None Full Exam - General Cardiovascular extremities Overall: No cyanosis 10/06/2016 None Full Exam - General Lymphatic neck nodes Overall: anterior cervical chain yolis ign 10/06/2016 None Full Exam - General Lymphatic neck nodes Overall: posterior cervical chain be nign 10/06/2016 None Full Exam - General Integument inspection of skin Overall: no rash, lesions 10/06/2016 None Full Exam - General Neurologic mental status Overall: alert 7 None Full Exam - General Neurologic mental status Overall: oriented 10/06/2016 None Full Exam - General Psychiatric mood and affect Overall: normal mood and affect 10/06/2016 None Full Exam - General Neck inspection of neck Overall: normal size 10/06/2016 None Procedures No Procedures data Vital Signs Date Vital 10/06/2016 Blood Pressure 1: 168/88 Code: 8480-6 BMI: 36.0 Code: 27441-0 Heart Rate 1: 94 bpm Height: 5'10" Respiratory Rate: 22 bpm SpO2: 97% Temperature: 36.2 (C ) / 97.1 (F) Weight: 251 lbs Functional Status No Functional Status data History of Present Illness Symptom Name Status Resu lt Effective Date Notes menstrual irregularity Quality acute 10/06/2016 None menstrual irregularity Quality dysmenorrhea 10/06/2016 None menstrual irregularity Quality menometrorrhagia 10/06/2016 None hypertension Quality acu te 10/06/2016 None hypertension Quality arley alexus hypertension 10/06/2016 None hypertension Quality wor sening 10/06/2016 None hypertension Onset and Resolution ongoing 10/06/2016 None hypertension Onset of Symptom during adulthood 10/06/2016 None anxiety Quality acute 10/06/2016 None anxiety Quality stable 10/06/2016 None anxiety Onset and Resolution gradual in onset 10/06/2016 None anxiety Onset of Symptom 10 months ago 10/06/2016 None hypertension Alleviating Factors medication 10/06/2016 in past hypertension Exacerbating Factors stress 10/06/2016 None menstrual irregularity Onset and Resolutio n ongoing 10/06/2016 None anxiety Onset of Symptom during adulthood 10/06/2016 None anxiety Triggers stress 10/06/2016 None Advance Directives No Advance Directive data Encounters Encounter Performer Loca tion Codes Date () OFFICE/OUTPA TIENT VISIT NEW Diagnosis: Essential (primary) hypertension[ICD10: I10] Diagnosis: Anxiety disorder, unspecified[ICD10: F41.9] [facility] CPT-4: 61468 10/06/2016 Plan of Care Planned Activity Notes C odes Status Date Visit Diagnosis Plan: Anxiety disorder, unspecified Discussion: Will start with adding zoloft to help control her anxiety If helpful, will hopefully see her BP drop back down to goal and her chest tightness complaints, that are likely anxiety attacks, will resolve Advised home BP monitoring the next 2 weeks Recheck in clinic with log and will see how she is feeling with the zoloft Will increase her zoloft and/or her norvasc pending her home readings and report on anxiety symptoms Records requested from Dr Harvey and labs from Dr Bella for review Discussed need to update tdap as well Stressed importance that if her chest symptoms worsen, she actually feels pain, radiating pain, diaphoresis, etc that she go to the ER or call 911 immediately ICD-9 : 300.00 ICD-10 : F41.9 10/06/2016 Appointment: Adriana Manuel [address] [place], [place] [id number] NEW PATIENT 10/06/2016 Patient Education: Patient Medication Summary Completed 10/06/2016 Instructions No Instructions
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
== END 2019-08-04 19:26 | disposition home or self-care (01) ==
LOC: EDUNIT# 15:42 → ER 15:43
DX: O21.0 Mild hyperemesis gravidarum (principal); O30.002 Twin pregnancy, unspecified number of placenta and unspecified number of amniotic sacs, second trimester; O16.2 Unspecified maternal hypertension, second trimester; Z87.442 Personal history of urinary calculi; Z3A.17 17 weeks gestation of pregnancy; Z88.1 Allergy status to other antibiotic agents; Z82.49 Family history of ischemic heart disease and other diseases of the circulatory system
CPT/HCPCS: 36415; 80053; 81000; 82150; 83605; 83690; 83735; 85025; 87040; 87804; 93041; 96361; 96374; 96375; 96376

== ENCOUNTER 2019-09-02 13:17 | Outpatient (CLI) | payer BC ==
[~2019-09-02] VITALS: Ht 177.8 cm; Wt 121.1 kg
--- NOTE | 2019-09-02 13:01 | NUR ---
ANTONI SHORT presented to unit via AMBULATORY from HOME, accompanied by MOTHER, with c/o FALL. ANTONI SHORT weighed, gowned, voided, and to bed. EFHM and TOCO applied, VS taken. ANTONI SHORT oriented to bed controls, call light, TV, heat, and A/C controls.
--- NOTE | 2019-09-02 13:32 | NUR ---
DR. PALM NOTIFIED OF PT'S ARRIVAL, GESTATION, C/O. CONTINUE WITH OP PROTOCOL.
[2019-09-02] MEDS ORDERED: PREN-37 PO (13:38)
[2019-09-02] MEDS ORDERED: NITR-65 PO (13:38)
[2019-09-02] MEDS ORDERED: ASPI-586 PO (13:38)
[2019-09-02 13:41] VITALS: BP 147/84
--- NOTE | 2019-09-02 14:01 | NUR ---
ORDERS RECEIVED TO DISCHARGE PT HOME.
--- NOTE | 2019-09-02 14:55 | NUR ---
DISCHARGE PAPERS PROVIDED AND REVIEWED WITH PT, PT VERBALIZES UNDERSTANDING AND DENIES ANY QUESTIONS AT THIS TIME. PAPER SIGNED. PT'S MOTHER AT BEDSIDE.
--- NOTE | 2019-09-02 15:00 | NUR ---
PT DISCHARGED FROM -[facility] TO PERSONAL AUTO VIA AMBULATORY IN STABLE CONDITION ACC BY PT'S MOTHER.
--- NOTE | 2019-09-03 08:26 | Physician Query-Final Dx ---
JONAH PROCTOR 09/03/19 0826: Clinic Account Progress/Dx Physician Query: Please give diagnosis Please give # weeks gestation Date of Service Sep 02, 2019 at 13:17 TYRA PALM DO 09/03/19 1714: Clinic Account Progress/Dx DIAGNOSIS: Diagnosis twin , di/di 22 week gestation Fall at home JONAH PROCTOR Sep 03, 2019 08:26 TYRA PALM DO Sep 03, 2019 17:14
== END 2019-09-02 15:00 | disposition home or self-care (01) ==
LOC: WSo 13:17 → LDRP 13:18 → WSo 15:00
PROVIDERS: ATTEND Obstetrics & Gynecology
DX: O9A.212 Injury, poisoning and certain other consequences of external causes complicating pregnancy, second trimester (principal); O30.002 Twin pregnancy, unspecified number of placenta and unspecified number of amniotic sacs, second trimester; W19.XXXA Unspecified fall, initial encounter; Y92.009 Unspecified place in unspecified non-institutional (private) residence as the place of occurrence of the external cause; Z3A.22 22 weeks gestation of pregnancy
CPT/HCPCS: 99212

== ENCOUNTER 2019-10-28 11:50 | Outpatient (CLI) | payer BC ==
[~2019-10-28] VITALS: Ht 177.8 cm; Wt 129.0 kg
[2019-10-28 11:30] VITALS: BP 147/84
--- NOTE | 2019-10-28 11:30 | NUR ---
ANTONI SHORT presented to unit via from ED, accompanied by family, with c/o INCREASED BLOOD PRESSURE,DECREASED MOVEMENT. ANTONI SHORT weighed, gowned, voided, and to bed. EFHM and TOCO applied, VS taken. ANTONI SHORT oriented to bed controls, call light, TV, heat, and A/C controls.
[~2019-10-28 11:50] MED LIST changes: +ASPI-586 PO; +NITR-65 PO; +PREN-37 PO
--- NOTE | 2019-10-28 12:10 | NUR ---
dr escobar notified of patient status, situation and c/o using SBAR. new orders received.
--- NOTE | 2019-10-28 12:27 | NUR ---
lab to bedside
[2019-10-28 12:38] LABS: BASOPHILS % (AUTO) 0 % (0-10); EOSINOPHILS # (AUTO) 0.1 10^3/uL (0.0-0.3); EOSINOPHILS % (AUTO) 1 % (0-10); HEMATOCRIT 35 % (35-52); HEMOGLOBIN 11.7 G/DL (11.5-16.0); LYMPHOCYTES # (AUTO) 2.4 X 10^3 (1.0-4.0); LYMPHOCYTES % (AUTO) 17 % (12-44); MEAN CORPUSCULAR HEMOGLOBIN 30 PG (25-34); MEAN CORPUSCULAR HGB CONC 33 G/DL (32-36); MEAN CORPUSCULAR VOLUME 89 FL (80-99); MEAN PLATELET VOLUME 9.9 FL (7.4-10.4); MONOCYTES # (AUTO) 1.2 X 10^3 (0.0-1.0); MONOCYTES % (AUTO) 9 % (0-12); NEUTROPHILS # (AUTO) 10.2 X 10^3 (1.8-7.8); NEUTROPHILS % (AUTO) 73 % (42-75); PLATELET COUNT 265 10^3/uL (130-400); RED CELL DISTRIBUTION WIDTH 13.1 % (10.0-14.5); WHITE BLOOD COUNT 13.9 10^3/uL (4.3-11.0)
[2019-10-28 13:02] LABS: ALANINE AMINOTRANSFERASE 12 U/L (0-55); ALBUMIN 3.4 GM/DL (3.2-4.5); ALKALINE PHOSPHATASE 85 U/L (40-136); BILIRUBIN,TOTAL 0.2 MG/DL (0.1-1.0); BUN/CREATININE RATIO 11; CALCIUM 9.5 MG/DL (8.5-10.1); CARBON DIOXIDE 20 MMOL/L (21-32); CHLORIDE 107 MMOL/L (98-107); CREATININE SERUM 0.65 MG/DL (0.60-1.30); GFR ESTIMATED > 60; GLUCOSE 81 MG/DL (70-105); POTASSIUM 3.7 MMOL/L (3.6-5.0); SODIUM 137 MMOL/L (135-145); TOTAL PROTEIN 6.3 GM/DL (6.4-8.2); URIC ACID 5.1 MG/DL (2.6-7.2)
[2019-10-28 13:08] LABS: BAND NEUTROPHILS 3 %; EOSINOPHILS % (MANUAL) 1 %; LYMPHOCYTES % (MANUAL) 16 %; MONOCYTES % (MANUAL) 6 %; NEUTROPHILS % (MANUAL) 74 %; RBC MORPH NORMAL
[2019-10-28 13:12] VITALS: BP 143/77
--- NOTE | 2019-10-28 13:14 | NUR ---
EFM removed. NST adequate for 28 weeks gestation. Twin A baseline of 145 and Twin B baseline of 150. occasional variables noted. Accelerations noted moderate variability. occasional contraction. patient denies pain or contractions.
[2019-10-28] MEDS ORDERED: NIFE20CA PO (13:24)
--- NOTE | 2019-10-28 13:33 | NUR ---
ambulated out of WS to with d/c papers to home on bedrest with s/o and older children via private vehicle.
--- NOTE | 2019-10-30 08:59 | Physician Query-Final Dx ---
Clinic Account Progress/Dx Physician Query: Please give diagnosis Please include # weeks gestation Date of Service Oct 28, 2019 at 11:50 JONAH PROCTOR Oct 30, 2019 08:59
== END 2019-10-28 13:33 | disposition home or self-care (01) ==
LOC: WSo 11:50 → LDRP 11:50 → WSo 13:33
PROVIDERS: ATTEND Obstetrics & Gynecology
DX: O36.8120 Decreased fetal movements, second trimester, not applicable or unspecified (principal); O13.2 Gestational [pregnancy-induced] hypertension without significant proteinuria, second trimester
CPT/HCPCS: 36415; 80053; 84550; 85007; 85025; 85027; 99213

== ENCOUNTER 2019-12-03 22:33 | Outpatient (CLI) | payer BC ==
[~2019-12-03] VITALS: Ht 177.8 cm; Wt 129.2 kg
[~2019-12-03 22:33] MED LIST changes: +NIFE20CA PO
[2019-12-03 22:45] VITALS: BP 159/90
--- NOTE | 2019-12-03 22:45 | NUR ---
ANTONI SHORT presented to unit via WC from ED, accompanied by SO, with c/o CONTRACTIONS. ANTONI SHORT weighed, gowned, voided, and to bed. EFHM and TOCO applied, VS taken. ANTONI SHORT oriented to bed controls, call light, TV, heat, and A/C controls.
[2019-12-03 23:05] VITALS: BP 159/90
[2019-12-03 23:14] LABS: BILIRUBIN,URINE NEGATIVE (NEGATIVE); CLARITY,URINE SL CLOUDY; COLOR,URINE YELLOW; GLUCOSE, URINE (UA) NEGATIVE (NEGATIVE); KETONES,URINE NEGATIVE (NEGATIVE); LEUKOCYTE ESTERASE ,URINE 2+ (NEGATIVE); NITRITE,URINE NEGATIVE (NEGATIVE); PROTEIN,URINE NEGATIVE (NEGATIVE)
[2019-12-03 23:20] VITALS: BP 156/85
[2019-12-03 23:54] LABS: AMORPHOUS SEDIMENT,UR RARE AMOR PHOSPHATE /LPF; BACTERIA,URINE FEW /HPF
[2019-12-03 23:57] VITALS: BP 140/83
[2019-12-04] MEDS ORDERED: cefTRIAXone 1,000 MG IV (ROCEPHIN) VIAL ONE (00:10)
[2019-12-04] MEDS ORDERED: WATER (STERILE) FOR INJECTION 10 ML ONE (00:10)
[2019-12-04] MEDS ORDERED: CEPH-507 PO (00:12)
[2019-12-04] MEDS ORDERED: LACTATED RINGERS 1,000 ML IV SCH (00:15)
[2019-12-04] MEDS ORDERED: cefTRIAXone FOR IV USE 1,000 MG in WATER (STERILE) FOR INJECTION 10 ML IV ONE (00:15)
[2019-12-04] MEDS ORDERED: ONDANSETRON 4 MG/2 ML (SDV) Z0FRAN ONE (01:22)
--- NOTE | 2019-12-04 01:50 | NUR ---
Discharge packet given and explained, understanding voiced per pt. denies needs or concerns. Pt aware ab tx to be picked up tomorrow at [facility] pharmacy in the am and requests she call office with update on her condition. Pt aware to take ab until compeletly gone, even if condition improves and if condition does not improve, to call office for culture report, also orders to take procardia 60mg when she arrives home as scheduled for her nightly dose. Pt voices understanding to education points. Labor precautions and issues reviewed, pt voices understanding. No further concerns noted. pt ambulatory off unit at this time accompanied by so.
--- NOTE | 2019-12-04 03:22 | NUR ---
Message left on [employer] pharmacy machine for Keflex 500mg tabs po bid x7 days (14tabs).
--- NOTE | 2019-12-04 08:09 | Physician Query-Final Dx ---
Clinic Account Progress/Dx Physician Query: Please give diagnosis Please include # weeks gestation Date of Service Dec 03, 2019 at 22:33 JONAH PROCTOR Dec 04, 2019 08:09
== END 2019-12-04 01:50 | disposition home or self-care (01) ==
LOC: WSo 22:33 → LDRP 22:33 → WSo 12-04 01:50
PROVIDERS: ATTEND Obstetrics & Gynecology
DX: O60.03 Preterm labor without delivery, third trimester (principal); Z3A.33 33 weeks gestation of pregnancy
CPT/HCPCS: 81000; 87077; 87088; 87186; 96361; 96374; 99214

== ENCOUNTER → 2019-12-17 | Outpatient (CLI) | payer BC ==
[~2019-12-17] VITALS: Ht 177 cm; Wt 129.2 kg
[~2019-12-17] MED LIST changes: +CEPH-507 PO; +METF-399 PO
== END ==
LOC: PREOP 08:51
PROVIDERS: ATTEND Obstetrics & Gynecology
DX: Z01.818 Encounter for other preprocedural examination (principal)

== ENCOUNTER 2019-12-18 01:35 | Inpatient (IN) | payer BC ==
[~2019-12-18] VITALS: Ht 172.7 cm; Wt 129.2 kg
[2019-12-18] VITALS (12 sets, daily range): BP systolic 103–153; BP diastolic 68–92
[2019-12-18] MEDS ORDERED: CITRIC ACID/SOB CIT (BICITRA) 30 ML UDC ONE (02:51)
[2019-12-18] MEDS ORDERED: FAMOTIDINE 20MG/2ML IV (PEPCID) ONE (02:51)
[2019-12-18] MEDS ORDERED: METOCLOPRAMIDE INJ 10 MG/2 ML (REGLAN) ONE (02:51)
[2019-12-18] MEDS ORDERED: ceFAZolin 2 GM IV Premixed 50 ML ONE (02:52)
[2019-12-18] MEDS ORDERED: LACTATED RINGERS 1,000 ML IV ONE (02:52)
[2019-12-18] MEDS ORDERED: LACTATED RINGERS 1,000 ML IV PRN ×2 (06:49)
[2019-12-18] MEDS ORDERED: FAMOTIDINE 20MG/2ML IV (PEPCID) IV ONE (07:00)
[2019-12-18] MEDS ORDERED: ceFAZolin 2 GM IV Premixed 50 ML IV ONE (07:00)
[2019-12-18] MEDS ORDERED: CITRIC ACID/SOB CIT (BICITRA) 30 ML UDC PO ONE (07:00)
[2019-12-18] MEDS ORDERED: METOCLOPRAMIDE INJ 10 MG/2 ML (REGLAN) IV ONE (07:00)
[2019-12-18] MEDS ORDERED: BUPIVACAINE 0.25% 30 ML (SENSORCAINE) VIAL ONE (07:01)
[2019-12-18] MEDS ORDERED: fentaNYL INJECTION 100 MCG/2 ML AMP ONE (07:01)
[2019-12-18] MEDS ORDERED: OXYTOCIN PRE-MIX DRIP 1,000 ML IV ONE (07:01)
[2019-12-18 07:11] LABS: BASOPHILS % (AUTO) 0 % (0-10); EOSINOPHILS # (AUTO) 0.1 10^3/uL (0.0-0.3); EOSINOPHILS % (AUTO) 1 % (0-10); HEMATOCRIT 39 % (35-52); HEMOGLOBIN 12.8 G/DL (11.5-16.0); LYMPHOCYTES # (AUTO) 2.6 X 10^3 (1.0-4.0); LYMPHOCYTES % (AUTO) 25 % (12-44); MEAN CORPUSCULAR HEMOGLOBIN 29 PG (25-34); MEAN CORPUSCULAR HGB CONC 33 G/DL (32-36); MEAN CORPUSCULAR VOLUME 86 FL (80-99); MEAN PLATELET VOLUME 10.5 FL (7.4-10.4); MONOCYTES # (AUTO) 1.1 X 10^3 (0.0-1.0); MONOCYTES % (AUTO) 10 % (0-12); NEUTROPHILS # (AUTO) 6.6 X 10^3 (1.8-7.8); NEUTROPHILS % (AUTO) 63 % (42-75); PLATELET COUNT 271 10^3/uL (130-400); RED CELL DISTRIBUTION WIDTH 14.5 % (10.0-14.5); WHITE BLOOD COUNT 10.4 10^3/uL (4.3-11.0)
--- NOTE | 2019-12-18 07:36 | Progress Note-Pre Operative ---
Pre-Operative Progress Note H&P Reviewed The H&P was reviewed, patient examined and no changes noted. Date Seen by Provider: Dec 18, 2019 Time Seen by Provider: :15 Date H&P Reviewed: Dec 18, 2019 Time H&P Reviewed: 07:00 Pre-Operative Diagnosis: twin , previous CS, IHP, CHTN, GDM A2 TYRA PALM DO Dec 18, 2019 07:36
[2019-12-18] MEDS ORDERED: PHENYLEPHRINE 100 MCG/ML 10 ML (ANESTHESIA) SYR ONE (07:38)
[2019-12-18 08:07] LABS: ALBUMIN 3.4 GM/DL (3.2-4.5); CHLORIDE 109 MMOL/L (98-107); POTASSIUM 3.8 MMOL/L (3.6-5.0); SODIUM 137 MMOL/L (135-145)
[2019-12-18 08:08] LABS: CALCIUM 9.1 MG/DL (8.5-10.1)
[2019-12-18 08:10] LABS: GLUCOSE 103 MG/DL (70-105); TOTAL PROTEIN 6.8 GM/DL (6.4-8.2)
[2019-12-18 08:11] LABS: BILIRUBIN,TOTAL 0.2 MG/DL (0.1-1.0); CARBON DIOXIDE 16 MMOL/L (21-32)
[2019-12-18 08:13] LABS: ALKALINE PHOSPHATASE 152 U/L (40-136); CREATININE SERUM 0.67 MG/DL (0.60-1.30); GFR ESTIMATED > 60
[2019-12-18 08:14] LABS: BUN/CREATININE RATIO 15
[2019-12-18 08:16] LABS: ALANINE AMINOTRANSFERASE 7 U/L (0-55)
[2019-12-18] MEDS ORDERED: OXYTOCIN PRE-MIX DRIP 500 ML IV SCH (08:22)
--- NOTE | 2019-12-18 08:28 | Cesarean Section Operative ---
Procedure Procedure Note Pre-operative Diagnosis: Marni Jeter is a 39 /Para 12/1112 ,Gestational Age 35 5/7 weeks ;Di Di twin , previous CS, IHP, CHTN, GDM A2 Post-operative Diagnosis: same Procedure: Repeat low transverse section Physician: TYRA PALM Estimated blood loss: 700 mL Disposition: stable Findings: 0756-TWIN A- VIABLE MALE BORN APGARS 8-9, WEIGHT 6-15 0758-TWIN B-VIABLE MALE BORN WEIGHT 6-4 intact placenta, 3vc, normal appearing uterus, tubes, and ovaries. Indications:Marni Jeter is a 39 /Para 12/1112 ,Gestational Age 35 5/7 weeks ;twin , previous CS, IHP, CHTN, GDM A2; vertex transverse presentations has been managed with assistance from [facility] in [place]. NST and growth adequate and reactive. However, she has been complaining of increasing whole body itching without rash consistent with intrahepatic cholestasis. There has been increased blood pressures, mild proteinuria and decreased movements. Due to all of this, the repeat section was scheduled for today. Procedure Details: The patient was seen in pre-op and the procedure was discussed with the patient in full, including the risks, benefits, and alternatives. All questions were answered. The patient was taken to the operating room and a time out was performed, verifying patient and procedure. After spinal anesthesia was placed by our anesthesia colleagues, the patient was placed in the dorsal supine with leftward tilt for uterine displacement.~ Her abdomen was then prepped and draped in the typical sterile fashion. A Pfann enstiel skin incision was made using a scalpel and carried down through the underlying fascia. The fascia was incised in the midline and tented up using Irineo clamps. On both the inferior and superior fascia side the rectus muscle was dissected off bluntly and sharply using Black scissors. The peritoneum was identified and entered bluntly in the midline. This was then stretched laterally using manual strength. After entering the abdominal cavity and confirming lack of intraperitoneal adhesions, an extra large Luis retractor was placed and the lower uterine segment was visualized. A scalpel was utilized to make a low transverse uterine incision. Amniotomy was performed with an Allis clamp with return of clear fluid. Twin A's head was grasped and brought to the level of the incision. Fundal pressure was applied and was delivered without difficulty. Mouth and nares were suctioned with bulb suction. After the umbilical cord was clamped and cut, the infant was handed off to the pediatric staff. A sample of cord blood was then obtained. The second twin was transverse, He was brought to the incision and the membranes ruptured and the immediatley turned vertex, so it was delivered vertex. Fundal pressure was applied and was delivered without difficulty. Mouth and nares were suctioned with bulb suction. After the umbilical cord was clamped and cut, the was handed off to the pediatric staff. A sample of cord blood was then obtained. The placentas were noted to be separate, anterior and posterior. They were delivered intact via uterine massage. The uterus was cleared of all clots and debris. The uterine incision was closed using 0 Vicryl in a running locked fashion. A second imbricated layer was placed using 0 Vicryl in a running fashion as well. The bilateral tubes and ovaries appeared normal. The abdominal gutters were cleared of all clots and debris. A final check of the uterine incision showed it to be hemostatic. The peritoneum was closed using 3-0 Vicryl in a running fashion. The fascia was closed with 0 Vicryl in a running fashion. The subcutaneous space was hemostatic, and irrigated. The subcutaneous space was closed with 0 Plain in several single interrupted stitches. The skin was then closed using 4-0 Monocryl in a running subcuticular fashion. The skin edges were reapproximated together and were hemostatic. A pressure dressing was applied. All sponge, lap and needle counts were correct at the end of the procedure per nursing. Vitals - Labs Vital Signs - I&O Vital Signs Date Time Temp Pulse Resp B/P (MAP) Pulse Ox O2 Delivery O2 Flow Rate FiO2 12/18/19 07:49 36.4 95 18 98 Room Air Labs Laboratory Tests 12/18/19 06:50: White Blood Count 10.4, Red Blood Count 4.48, Hemoglobin 12.8, Hematocrit 39, Mean Corpuscular Volume 86, Mean Corpuscular Hemoglobin 29, Mean Corpuscular Hemoglobin Concent 33, Red Cell Distribution Width 14.5, Platelet Count 271, Mean Platelet Volume 10.5H, Neutrophils (%) (Auto) 63, Lymphocytes (%) (Auto) 25, Monocytes (%) (Auto) 10, Eosinophils (%) (Auto) 1, Basophils (%) (Auto) 0, Neutrophils # (Auto) 6.6, Lymphocytes # (Auto) 2.6, Monocytes # (Auto) 1.1H, Eosinophils # (Auto) 0.1, Basophils # (Auto) 0.0, Sodium Level 137, Potassium Level 3.8, Chloride Level 109H, Carbon Dioxide Level 16L, Anion Gap 12, Blood Urea Nitrogen 10, Creatinine 0.67, Estimat Glomerular Filtration Rate > 60, BUN/ Creatinine Ratio 15, Glucose Level 103, Calcium Level 9.1, Corrected Calcium 9.6, Total Bilirubin 0.2, Aspartate Amino Transf (AST/SGOT) 14, Alanine Aminotransferase (ALT/SGPT) 7, Alkaline Phosphatase 152H, Total Protein 6.8, Albumin 3.4 TYRA PALM DO Dec 18, 2019 08:28
[2019-12-18] MEDS ORDERED: TETANUS,DIPTH,PERTUSS P/F (BOOSTRIX) 0.5 ML VIAL IM SCH (08:30)
[2019-12-18] MEDS ORDERED: MEASLES,MUMPS,RUBELLA 1 EA INJ SC SCH (08:30)
[2019-12-18] MEDS ORDERED: morphine INJ 4 MG/ML 1 ML (VIAL/SYRINGE) IVP PRN (08:30)
[2019-12-18] MEDS: DOCUSATE SODIUM 100 MG (COLACE) CAP PO SCH ×3 (10:18→20:25)
--- NOTE | 2019-12-18 10:21 | NUR ---
Report received from ANANDA Lilly. care assumed of pt.
--- NOTE | 2019-12-18 12:00 | NUR ---
vs taken. reviewed POC, states understanding. s/o and Twin B @ side.
[2019-12-18] MEDS: ACETAMINOPHEN 500 MG TAB (TYLENOL) PO SCH ×2 (12:04→20:25)
[2019-12-18] MEDS: KETOROLAC 30 MG/ML VIAL IV SCH ×2 (12:05→18:49)
[2019-12-18] MEDS: ENOXAPARIN 40 MG/0.4 ML (LOVENOX) SYR SC SCH ×2 (12:06→23:56)
[2019-12-18] MEDS: amLODIPine 10 MG (NORVASC) TAB PO SCH (13:28)
[2019-12-18] MEDS: CATHETER FLUSH 10 ML SYR IV SCH ×2 (16:28→18:49)
--- NOTE | 2019-12-18 16:37 | NUR ---
FSBS 95mg/dl per finger stick. pt, and twins in room. appropriate bonding noted. cowan catheter dc'd. 400cc urine noted. v-pad and panties in place.
[2019-12-18] MEDS ORDERED: IBUPROFEN 600 MG (MOTRIN) TAB PO ONE (23:47)
[2019-12-18] MEDS: IBUPROFEN 600 MG (MOTRIN) TAB PO SCH (23:55)
[2019-12-19] MEDS: KETOROLAC 30 MG/ML VIAL IV SCH (00:31)
[2019-12-19 05:00] VITALS: BP 141/84
[2019-12-19] MEDS ORDERED: MILK OF MAGNESIA 400 MG/5 ML 30 ML UDC PO PRN (05:00)
[2019-12-19] MEDS: ACETAMINOPHEN 500 MG TAB (TYLENOL) PO SCH ×3 (05:02→23:44)
[2019-12-19 05:38] LABS: BASOPHILS % (AUTO) 0 % (0-10); EOSINOPHILS # (AUTO) 0.1 10^3/uL (0.0-0.3); EOSINOPHILS % (AUTO) 1 % (0-10); HEMATOCRIT 32 % (35-52); HEMOGLOBIN 10.5 G/DL (11.5-16.0); LYMPHOCYTES # (AUTO) 2.8 X 10^3 (1.0-4.0); LYMPHOCYTES % (AUTO) 25 % (12-44); MEAN CORPUSCULAR HEMOGLOBIN 29 PG (25-34); MEAN CORPUSCULAR HGB CONC 33 G/DL (32-36); MEAN CORPUSCULAR VOLUME 87 FL (80-99); MEAN PLATELET VOLUME 10.4 FL (7.4-10.4); MONOCYTES # (AUTO) 0.9 X 10^3 (0.0-1.0); MONOCYTES % (AUTO) 8 % (0-12); NEUTROPHILS # (AUTO) 7.4 X 10^3 (1.8-7.8); NEUTROPHILS % (AUTO) 66 % (42-75); PLATELET COUNT 232 10^3/uL (130-400); WHITE BLOOD COUNT 11.3 10^3/uL (4.3-11.0)
[2019-12-19] MEDS ORDERED: IBUPROFEN 600 MG (MOTRIN) TAB PO ONE (05:53)
[2019-12-19] MEDS: IBUPROFEN 600 MG (MOTRIN) TAB PO SCH ×3 (06:01→23:45)
[2019-12-19 08:00] VITALS: BP 152/91
--- NOTE | 2019-12-19 08:35 | Postpartum Progress Note ---
Post Op Post-operative Day #1 s/p RLTCS, Intrahepatic cholestasis, chronic hypertension, Gestational diabetes, A2, AMA.f Subjective: Patient is without complaints. Ambulating, voiding after cowan removed. Tolerating a regular diet without nausea or vomiting. Normal lochia. Pain is well controlled with oral pain medications. Passing flatus. breast feeding. Baby B is having some issues with latching. Objective: Laboratory Tests Test 12/18/19 16:36 12/19/19 05:18 Range/Units Glucometer 95 70-110 MG/DL White Blood Count 11.3 H 4.3-11.0 10^3/uL Red Blood Count 3.62 L 4.35-5.85 10^6/uL Hemoglobin 10.5 L 11.5-16.0 G/DL Hematocrit 32 L 35-52 % Mean Corpuscular Volume 87 80-99 FL Mean Corpuscular Hemoglobin 29 25-34 PG Mean Corpuscular Hemoglobin Concent 33 32-36 G/DL Red Cell Distribution Width 14.0 10.0-14.5 % Platelet Count 232 130-400 10^3/uL Mean Platelet Volume 10.4 7.4-10.4 FL Neutrophils (%) (Auto) 66 42-75 % Lymphocytes (%) (Auto) 25 12-44 % Monocytes (%) (Auto) 8 0-12 % Eosinophils (%) (Auto) 1 0-10 % Basophils (%) (Auto) 0 0-10 % Neutrophils # (Auto) 7.4 1.8-7.8 X 10^3 Lymphocytes # (Auto) 2.8 1.0-4.0 X 10^3 Monocytes # (Auto) 0.9 0.0-1.0 X 10^3 Eosinophils # (Auto) 0.1 0.0-0.3 10^3/uL Basophils # (Auto) 0.0 0.0-0.1 10^3/uL Glucose Level 94 70-105 MG/DL Vital Sign - Last 24 Hours 12/18/19 12/18/19 12/18/19 12/18/19 08:45 08:50 08:55 09:05 Resp 16 16 B/P (MAP) 103/69 (80) 110/69 (83) Pulse Ox 100 100 O2 Delivery Room Air Room Air Room Air Room Air 4/1512/18/19 12/18/19 12/18/19 09:05 09:15 09:20 09:25 Temp 37.0 Resp 18 16 18 B/P (MAP) 127/68 (87) 122/90 (101) 136/92 (107) Pulse Ox 99 100 100 O2 Delivery Room Air Room Air Room Air Room Air 12/18/19 12/18/19 12/18/19 12/18/19 09:35 09:35 12:00 16:37 Temp 36.4 36.0 Pulse 82 86 Resp 18 18 18 B/P (MAP) 141/84 (103) 147/84 (105) 153/89 (110) Pulse Ox 100 99 97 O2 Delivery Room Air Room Air Room Air Room Air 12/18/19 12/18/19 12/19/19 20:25 23:55 05:00 Temp 36.5 36.6 36.3 Pulse 84 82 82 Resp 18 18 18 B/P (MAP) 147/91 (109) 139/90 (106) 141/84 (103) Pulse Ox 97 96 97 O2 Delivery Room Air Room Air Room Air Intake and Output 12/18/19 12/18/19 12/19/19 15:00 23:00 07:00 Intake Total 1000 ml Output Total 250 ml 1300 ml Balance -250 ml -300 ml Physical Exam: General - Alert and oriented, no apparent distress Abdomen - Soft, appropriately tender to palpation, non-distended, fundus firm at umbilicus Incision - clean, dry and intact; no erythema or induration, no drainage Extremities - no edema, negative Balbir's bilaterally Assessment: 1. post-operative day # 1, status post RLCTS; chronic HTN, GDM A2, AMA, ICHP. Recovering well, hemodynamically stable 2. Mild Acute blood loss anemia Plan: Routine post-operative care. Encourage breast feeding. Encourage ambulation. VTE prophylaxis: SCDs. Ferrous sulfate supplementation. Plan for discharge Tomorrow or Monday. Vitals - Labs Vital Signs - I&O Vital Signs Date Time Temp Pulse Resp B/P (MAP) Pulse Ox O2 Delivery O2 Flow Rate FiO2 12/19/19 05:00 36.3 82 18 141/84 (103) 97 Room Air 12/18/19 23:55 36.6 82 18 139/90 (106) 96 Room Air 12/18/19 20:25 36.5 84 18 147/91 (109) 97 Room Air 12/18/19 16:37 36.0 86 18 153/89 (110) 97 Room Air 12/18/19 12:00 36.4 82 18 147/84 (105) 99 Room Air 12/18/19 09:35 18 141/84 (103) 100 Room Air 12/18/19 09:35 Room Air 12/18/19 09:25 18 136/92 (107) 100 Room Air 12/18/19 09:20 Room Air 12/18/19 09:15 16 122/90 (101) 100 Room Air 12/18/19 09:05 37.0 18 127/68 (87) 99 Room Air 12/18/19 09:05 Room Air 12/18/19 08:55 16 110/69 (83) 100 Room Air 12/18/19 08:50 Room Air 12/18/19 08:45 16 103/69 (80) 100 Room Air 12/18/19 08:35 37.0 16 112/76 (88) 100 Room Air I & O 12/19/19 07:00 Intake Total 1000 ml Output Total 1550 ml Balance -550 ml Labs Laboratory Tests 12/18/19 16:36: Glucometer 95 12/19/19 05:18: White Blood Count 11.3H, Red Blood Count 3.62L, Hemoglobin 10.5L, Hematocrit 32L , Mean Corpuscular Volume 87, Mean Corpuscular Hemoglobin 29, Mean Corpuscular Hemoglobin Concent 33, Red Cell Distribution Width 14.0, Platelet Count 232, Mean Platelet Volume 10.4, Neutrophils (%) (Auto) 66, Lymphocytes (%) (Auto) 25, Monocytes (%) (Auto) 8, Eosinophils (%) (Auto) 1, Basophils (%) (Auto) 0, Neutrophils # (Auto) 7.4, Lymphocytes # (Auto) 2.8, Monocytes # (Auto) 0.9, Eosinophils # (Auto) 0.1, Basophils # (Auto) 0.0, Glucose Level 94 TYRA PALM DO Dec 19, 2019 08:35
--- NOTE | 2019-12-19 09:15 | Anesthesia-Regional Post-Op ---
Regional Patient Condition Mental Status: Alert, Oriented x3 Circulation: Same as Pre-Op Headache: Absent Sensation: Full Recovery Motor Block: Absent Post Op Complications Complications None Follow Up Care/Instructions Patient Instructions None needed. Anesthesia/Patient Condition Patient is doing well, no complaints, stable vital signs, no apparent adverse anesthesia problems. No complications reported per nursing. FRIDA SHEIKH CRNA Dec 19, 2019 09:15
[2019-12-19] MEDS: amLODIPine 10 MG (NORVASC) TAB PO SCH (09:28)
[2019-12-19] MEDS: ENOXAPARIN 40 MG/0.4 ML (LOVENOX) SYR SC SCH ×2 (11:30→23:45)
[2019-12-19 12:00] VITALS: BP 142/90
--- NOTE | 2019-12-19 12:16 | Short Stay Summary ---
Discharge Summary Hospital Course Was the Problem List Reviewed?: Yes Final Diagnosis: Prev CS, Twins, ICHP, Chronic HTN, GDMA2, AMA Hospital Course Date of Admission: Dec 18, 2019 at 06:08 Admission Diagnosis : Family Physician/Provider: Tyra Palm DO Date of Discharge: 12/19/19 Discharge Diagnosis: Previous section, Twin Gestation, Intrahepatic cholestasis, chronic hypertension, GDM A2, AMA Acute blood loss anemia Hospital Course: section was scheduled at 35/57 weeks due to intrahepatic cholestasis, decreased movement and history of previous section, Di/Di twin gestation The section was on 12/18/19 and was uncomplicated. Her post operative course was uncomplicated. Fastin blood sugar on day 1 was 95, hgb was 10.5. Her blood pressures were labile. she had been on nifedipine prior to delivery due to chronic hypertension and risk of labor/contractions. Prior to she had been on Amlodipine. After delivery, I stopped the nifedipine and restarted the 10 mg amlodipine. Post operative pain management with toradol and the tylenol/motrin and oxycodone. Initially the baby B was not latching well, but by post day 2, she was ready to go home and babies were ready to be discharged. Labs and Pending Lab Test: Laboratory Tests 12/18/19 16:36: Glucometer 95 12/19/19 05:18: White Blood Count 11.3H, Red Blood Count 3.62L, Hemoglobin 10.5L, Hematocrit 32L , Mean Corpuscular Volume 87, Mean Corpuscular Hemoglobin 29, Mean Corpuscular Hemoglobin Concent 33, Red Cell Distribution Width 14.0, Platelet Count 232, Mean Platelet Volume 10.4, Neutrophils (%) (Auto) 66, Lymphocytes (%) (Auto) 25, Monocytes (%) (Auto) 8, Eosinophils (%) (Auto) 1, Basophils (%) (Auto) 0, Neutrophils # (Auto) 7.4, Lymphocytes # (Auto) 2.8, Monocytes # (Auto) 0.9, Eosinophils # (Auto) 0.1, Basophils # (Auto) 0.0, Glucose Level 94 Home Meds Active Reported Metformin HCl 1,000 Mg Tablet 1,500 Mg PO HS Nifedipine 20 Mg Capsule 60 Mg PO DAILY Tablet ( Vit/Iron Fumarate/FA) 1 Each Tablet 1 Each PO DAILY Assessment/Pt Instructions Patient's blood pressures are labile. Routine post op instructions. will follow up in the clinic as scheduled. Discharge Instructions Discharge Diet: No Restrictions Activity as Tolerated: Yes (no driving x 1 week, nothing in the vagina x 4 weeks, no lifting over 25 lbs) Discharge Physical Examination General Appearance: Alert HEENT: Atraumatic Respiratory: Clear to Auscultation, Normal Air Movement Cardiovascular: Regular Rate, Normal S1, Normal S2 Abdominal: Normal Bowel Sounds Allergies: Coded Allergies: ampicillin (Verified Allergy, Unknown, RASH, 11/10/17) Discharge Summary Date of Admission Dec 18, 2019 at 06:08 Date of Discharge Clinical Quality Measures DVT/VTE Risk/Contraindication: Risk Factor Score Per Nursin RFS Level Per Nursing on Admit: 2=Moderate TYRA PALM DO Dec 19, 2019 12:16
--- NOTE | 2019-12-19 14:50 | NUR ---
report received from ANANDA Ornelas.
[2019-12-19 18:35] VITALS: BP 81/90
--- NOTE | 2019-12-19 18:35 | NUR ---
VS taken, @ side.
--- NOTE | 2019-12-19 19:07 | NUR ---
report given to ANANDA Neal.
[2019-12-19 23:35] VITALS: BP 147/86
[2019-12-19] MEDS: DOCUSATE SODIUM 100 MG (COLACE) CAP PO SCH (23:44)
[2019-12-20 06:05] VITALS: BP 135/82
[2019-12-20] MEDS: IBUPROFEN 600 MG (MOTRIN) TAB PO SCH ×2 (06:06→12:56)
[2019-12-20] MEDS: ACETAMINOPHEN 500 MG TAB (TYLENOL) PO SCH (10:29)
[2019-12-20] MEDS: amLODIPine 10 MG (NORVASC) TAB PO SCH (10:29)
[2019-12-20 10:30] VITALS: BP 137/88
[2019-12-20] MEDS: DOCUSATE SODIUM 100 MG (COLACE) CAP PO SCH (10:30)
--- NOTE | 2019-12-20 10:30 | NUR ---
initial shift assessment completed, see interventions for further.
--- NOTE | 2019-12-20 11:40 | Postpartum Progress Note ---
Post Op Post-operative Day # 2 s/p RLTCS twin Subjective: Patient is without complaints. Ambulating, voiding after cowan removed. Tolerating a regular diet without nausea or vomiting. Normal lochia. Pain is well controlled with oral pain medications. Passing flatus. breast feeding. Objective: 12/20/19 12/20/19 06:05 10:30 Temp 36.4 36.2 Pulse 80 90 Resp 18 18 B/P (MAP) 135/82 (99) 137/88 (104) Pulse Ox 98 95 O2 Delivery Room Air Physical Exam: General - Alert and oriented, no apparent distress Abdomen - Soft, appropriately tender to palpation, non-distended, fundus firm at umbilicus Incision - clean, dry and intact; no erythema or induration, no drainage Extremities - no edema, negative Balbir's bilaterally Assessment: 1. post-operative day # 2, status post 2 s/p RLTCS; twins, Chronic HTN, GDM. Recovering well, hemodynamically stable Acute blood loss anemia Plan: Routine post-operative care. Encourage breast feeding. Encourage ambulation. VTE prophylaxis: SCDs. Ferrous sulfate supplementation. Plan for discharge Vitals - Labs Vital Signs - I&O Vital Signs Date Time Temp Pulse Resp B/P (MAP) Pulse Ox O2 Delivery O2 Flow Rate FiO2 12/20/19 10:30 36.2 90 18 137/88 (104) 95 Room Air 12/20/19 06:05 36.4 80 18 135/82 (99) 98 12/19/19 23:35 36.5 83 18 147/86 (106) 97 12/19/19 18:35 36.8 93 20 81/90 (87) 97 Room Air 12/19/19 12:00 36.9 85 20 142/90 (107) 97 Room Air TYRA PALM DO Dec 20, 2019 11:40
[2019-12-20] MEDS ORDERED: AMLO10TA7 PO (11:43)
[2019-12-20] MEDS ORDERED: IBUP-844 PO (11:43)
[2019-12-20] MEDS ORDERED: OXYC5TAB96 PO (11:43)
[2019-12-20] MEDS ORDERED: ACET-93 PO (11:43)
--- NOTE | 2019-12-20 12:10 | NUR ---
pt dismissed to private vehicle via w/c with ANANDA Mcwilliams, twins and @ side. Twins secured in rear facing car seats. pt stable with no sx's of distress noted.
[2019-12-20] MEDS: ENOXAPARIN 40 MG/0.4 ML (LOVENOX) SYR SC SCH (12:56)
--- NOTE | 2019-12-20 12:56 | NUR ---
dismissal instructions given, verbalizes understanding. reviewed follow up appointments and Rx's. signature page signed, placed on chart.
== END 2019-12-20 13:10 | disposition home or self-care (01) | DRG 787 ==
LOC: LDRP 06:08
PROVIDERS: ADMIT Obstetrics & Gynecology; ATTEND Obstetrics & Gynecology
PROC: 10D00Z1 Extraction of Products of Conception, Low, Open Approach (ICD-10-PCS; principal; 2019-12-18 07:33)
DX: O30.043 Twin pregnancy, dichorionic/diamniotic, third trimester (principal); O34.211 Maternal care for low transverse scar from previous cesarean delivery; O26.62 Liver and biliary tract disorders in childbirth; O24.425 Gestational diabetes mellitus in childbirth, controlled by oral hypoglycemic drugs; O10.92 Unspecified pre-existing hypertension complicating childbirth; O76 Abnormality in fetal heart rate and rhythm complicating labor and delivery; O90.81 Anemia of the puerperium; D62 Acute posthemorrhagic anemia; Z37.2 Twins, both liveborn; Z3A.35 35 weeks gestation of pregnancy
CPT/HCPCS: 36415; 80053; 82947; 82962; 85025; 86850; 86900; 86901; 88307; 94664

== ENCOUNTER 2020-02-08 10:59 | Emergency (ER) | payer BC ==
[~2020-02-08] VITALS: Ht 175.2 cm; Wt 117.0 kg
[~2020-02-08 10:59] MED LIST changes: +ACET-93 PO; +AMLO10TA7 PO; +IBUP-844 PO; +OXYC5TAB96 PO
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
[2020-02-08 11:43] LABS: BASOPHILS # (AUTO) 0.1 10^3/uL (0.0-0.1); BASOPHILS % (AUTO) 1 % (0-10); EOSINOPHILS # (AUTO) 0.1 10^3/uL (0.0-0.3); EOSINOPHILS % (AUTO) 1 % (0-10); HEMATOCRIT 43 % (35-52); HEMOGLOBIN 14.3 G/DL (11.5-16.0); LYMPHOCYTES # (AUTO) 1.8 X 10^3 (1.0-4.0); LYMPHOCYTES % (AUTO) 19 % (12-44); MEAN CORPUSCULAR HEMOGLOBIN 29 PG (25-34); MEAN CORPUSCULAR HGB CONC 33 G/DL (32-36); MEAN CORPUSCULAR VOLUME 86 FL (80-99); MEAN PLATELET VOLUME 9.6 FL (7.4-10.4); MONOCYTES # (AUTO) 0.5 X 10^3 (0.0-1.0); MONOCYTES % (AUTO) 6 % (0-12); NEUTROPHILS # (AUTO) 6.9 X 10^3 (1.8-7.8); NEUTROPHILS % (AUTO) 74 % (42-75); PLATELET COUNT 324 10^3/uL (130-400); RED CELL DISTRIBUTION WIDTH 14.9 % (10.0-14.5); WHITE BLOOD COUNT 9.4 10^3/uL (4.3-11.0)
[2020-02-08] MEDS ORDERED: ONDANSETRON 4 MG/2 ML (SDV) Z0FRAN IVP ONE (11:45)
[2020-02-08] MEDS ORDERED: NS IV 1000 ML 1,000 ML IV SCH (11:45)
[2020-02-08] MEDS ORDERED: KETOROLAC 30 MG/ML VIAL IVP ONE (11:45)
--- NOTE | 2020-02-08 11:48 | ED GU-Female ---
General Stated Complaint: BACK PAIN / VOMITING Source: patient Exam Limitations: no limitations History of Present Illness Date Seen by Provider: Feb 08, 2020 Time Seen by Provider: 11:45 Initial Comments ER with sudden onset right flank pain that radiates around to the front. History of kidney infection and this feels similar. She did have some nausea and vomiting. Timing/Duration: yesterday, getting worse Severity/Quality: moderate Location: right flank Radiation: none Activities at Onset: none Prior Genitourinary Problems: none Associated Symptoms: nausea/vomiting Allergies and Home Medications Allergies Coded Allergies: ampicillin (Verified Allergy, Unknown, RASH, 11/10/17) Home Medications Acetaminophen 500 Mg Tablet, 1,000 MG PO Q8HR Prescribed by: TYRA PALM on 12/20/19 1143 Amlodipine Besylate 10 Mg Tablet, 10 MG PO DAILY Prescribed by: TYRA PALM on 12/20/19 1143 Ibuprofen 600 Mg Tablet, 600 MG PO Q6HR Prescribed by: TYRA PALM on 12/20/19 1143 Oxycodone HCl 5 Mg Tablet, 5 MG PO Q4HR PRN for PAIN-SEVERE (8-10) Prescribed by: TYRA PALM on 12/20/19 1143 Vit/Iron Fumarate/FA 1 Each Tablet, 1 EACH PO DAILY, (Reported) Patient Home Medication List Home Medication List Reviewed: Yes Review of Systems Review of Systems Constitutional: see HPI EENTM: see HPI Respiratory: no symptoms reported Cardiovascular: no symptoms reported Genitourinary: see HPI Musculoskeletal: no symptoms reported Skin: no symptoms reported Psychiatric/Neurological: No Symptoms Reported Endocrine: No Symptoms Reported Hematologic/Lymphatic: No Symptoms Reported Past Xkllvua-Gnkinj-Vqitkx Hx Patient Social History Type Used: Cigarettes Former Smoker, Quit: Dec 16, 2008 2nd Hand Smoke Exposure: No Recent Foreign Travel: No Contact w/Someone Who Travel: No Recent Hopitalizations: Yes (c section 5 years ago) Immunizations Up To Date Date of Influenza Vaccine: Jul 28, 2019 Seasonal Allergies Seasonal Allergies: No Past Medical History Surgeries: Yes (IUD REMOVAL, KIDNEY STONES, ANKLE X2) Section, Orthopedic Respiratory: No Cardiac: Yes Hypertension Neurological: No Reproductive Disorders: No Female Reproductive Disorders: Denies 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 Sexually Transmitted Disease: No HIV/AIDS: No Genitourinary: Yes Bladder Infection, Kidney Stones Gastrointestinal: No Musculoskeletal: No Endocrine: No HEENT: No Loss of Vision: Bilateral Hearing Impairment: Denies Cancer: No Psychosocial: No Integumentary: Yes (ELBOWS/ANKLES) Psoriasis Blood Disorders: No Adverse Reaction/Blood Tranf: No (N/A) Family Medical History Hypertension 19 MOTHER Kidney stones 19 MOTHER G8 BROTHER G8 SISTER Myocardial infarction 19 MOTHER Thyroid disease 19 MOTHER Physical Exam Vital Signs Vital Signs - First Documented 02/08/20 11:20 Temp 36.6 Pulse 82 Resp 18 B/P (MAP) 172/98 (122) Pulse Ox 97 O2 Delivery Room Air Capillary Refill : Height, Weight, BMI Height: 5'10.00" Weight: 260lbs. 0oz. 117.689969lz; 43.31 BMI Method:Stated General Appearance: WD/WN, no apparent distress HEENT: PERRL/EOMI, normal ENT inspection Neck: non-tender, full range of motion Respiratory: no respiratory distress, no accessory muscle use Gastrointestinal: normal bowel sounds, non tender, soft Extremities: normal range of motion, non-tender Neurologic/Psychiatric: alert, normal mood/affect, oriented x 3 Skin: normal color, warm/dry Progress/Results/Core Measures Suspected Sepsis SIRS Temperature: Pulse: Respiratory Rate: Laboratory Tests 02/08/20 11:30: White Blood Count 9.4 Blood Pressure / Mean: Laboratory Tests 02/08/20 11:30: Creatinine 0.81, Platelet Count 324, Total Bilirubin 0.3 Results/Orders Lab Results Laboratory Tests Test 02/08/20 11:25 02/08/20 11:30 Range/Units Urine Color YELLOW Urine Clarity CLEAR Urine pH 7.0 5-9 Urine Specific [place] 1.020 1.016-1.022 Urine Protein TRACE H NEGATIVE Urine Glucose (UA) NEGATIVE NEGATIVE Urine Ketones NEGATIVE NEGATIVE Urine Nitrite NEGATIVE NEGATIVE Urine Bilirubin NEGATIVE NEGATIVE Urine Urobilinogen 0.2 < = 1.0 MG/DL Urine Leukocyte Esterase TRACE H NEGATIVE Urine RBC (Auto) TRACE-I NEGATIVE Urine RBC 5-10 H /HPF Urine WBC RARE /HPF Urine Squamous Epithelial Cells 5-10 /HPF Urine Crystals NONE /LPF Urine Bacteria TRACE /HPF Urine Casts NONE /LPF Urine Mucus NEGATIVE /LPF Urine Culture Indicated NO White Blood Count 9.4 4.3-11.0 10^3/uL Red Blood Count 5.00 4.35-5.85 10^6/uL Hemoglobin 14.3 11.5-16.0 G/DL Hematocrit 43 35-52 % Mean Corpuscular Volume 86 80-99 FL Mean Corpuscular Hemoglobin 29 25-34 PG Mean Corpuscular Hemoglobin Concent 33 32-36 G/DL Red Cell Distribution Width 14.9 H 10.0-14.5 % Platelet Count 324 130-400 10^3/uL Mean Platelet Volume 9.6 7.4-10.4 FL Neutrophils (%) (Auto) 74 42-75 % Lymphocytes (%) (Auto) 19 12-44 % Monocytes (%) (Auto) 6 0-12 % Eosinophils (%) (Auto) 1 0-10 % Basophils (%) (Auto) 1 0-10 % Neutrophils # (Auto) 6.9 1.8-7.8 X 10^3 Lymphocytes # (Auto) 1.8 1.0-4.0 X 10^3 Monocytes # (Auto) 0.5 0.0-1.0 X 10^3 Eosinophils # (Auto) 0.1 0.0-0.3 10^3/uL Basophils # (Auto) 0.1 0.0-0.1 10^3/uL Sodium Level 141 135-145 MMOL/L Potassium Level 3.8 3.6-5.0 MMOL/L Chloride Level 110 H 98-107 MMOL/L Carbon Dioxide Level 20 L 21-32 MMOL/L Anion Gap 11 5-14 MMOL/L Blood Urea Nitrogen 16 7-18 MG/DL Creatinine 0.81 0.60-1.30 MG/DL Estimat Glomerular Filtration Rate > 60 BUN/Creatinine Ratio 20 Glucose Level 121 H 70-105 MG/DL Calcium Level 9.5 8.5-10.1 MG/DL Corrected Calcium 9.1 8.5-10.1 MG/DL Total Bilirubin 0.3 0.1-1.0 MG/DL Aspartate Amino Transf (AST/SGOT) 24 5-34 U/L Alanine Aminotransferase (ALT/SGPT) 25 0-55 U/L Alkaline Phosphatase 89 40-136 U/L Total Protein 7.8 6.4-8.2 GM/DL Albumin 4.5 3.2-4.5 GM/DL My Orders Orders - JESSICA HURTADO APRN Ua Culture If Indicated (02/08/20 11:34) Cbc With Automated Diff (02/08/20 11:34) Comprehensive Metabolic Panel (02/08/20 11:34) Ed Iv/Invasive Line Start (02/08/20 11:34) Abdomen/Kub 1view (02/08/20 11:41) Ct Abd/Pelvis Wo(Kidney Stone) (02/08/20 11:41) Ketorolac Injection (Toradol Injection) (02/08/20 11:45) Ns Iv 1000 Ml (Sodium Chloride 0.9%) (02/08/20 11:45) Ondansetron Injection (Zofran Injectio (02/08/20 11:45) Medications Given in ED Current Medications Medications Dose Ordered Sig/Guillermina Route Start Time Stop Time Status Last Admin Dose Admin Ketorolac Tromethamine 15 mg ONCE ONCE IVP 02/08/20 11:45 02/08/20 11:46 DC 02/08/20 11:52 15 MG Ondansetron HCl 8 mg ONCE ONCE IVP 02/08/20 11:45 02/08/20 11:46 DC 02/08/20 11:52 8 MG Vital Signs/I&O 02/08/20 11:20 Temp 36.6 Pulse 82 Resp 18 B/P (MAP) 172/98 (122) Pulse Ox 97 O2 Delivery Room Air Capillary Refill : Diagnostic Imaging Diagonstic Imaging: Xray Comments NAME: ANTONI SHORT [facility] REC#: [id number] PT STATUS: REG ER : 1980 PHYSICIAN: JESSICA HURTADO [employer]RICULUM AND INSTRUCTION DIRECTOR ADMIT DATE: 02/08/20/ER Draft Date of Exam:02/08/20 CT ABD/PELVIS WO(KIDNEY STONE) PROCEDURE: CT urinary tract, rule out kidney stone. TECHNIQUE: Multiple contiguous axial images were obtained through the abdomen and pelvis without the use of intravenous contrast. Auto Exposure Controls were utilized during the CT exam to meet ALARA standards for radiation dose reduction. DATE: February 08, 2020. COMPARISON: Ultrasound October 09, 2018. CT abdomen and pelvis August 05, 2012. INDICATION: 39-year-old female, right-sided abdominal pain. FINDINGS: There are limitations for evaluation of the abdominal organs, neoplastic processes, abscess, and limited evaluation of the vasculature relating to the lack of intravenous contrast. The visualized portions of the lung bases are clear. The heart is not enlarged. There is no pericardial effusion. The liver is normal in size and contour. The gallbladder is unremarkable. There is no intrahepatic or extrahepatic bile duct dilation. The main pancreatic duct is not abnormally dilated. Limited noncontrast evaluation of the pancreas is unremarkable. The spleen is normal in size. The adrenal glands are unremarkable. There are several nonobstructing renal stones bilaterally. There is moderate right hydronephrosis and moderate right hydroureter. There is a stone in the mid to distal right ureter measuring 6.5 mm in size in axial image 92. There is no additionally identified ureteral stone. Urinary bladder is unremarkable. There are pelvic calcifications compatible with phleboliths. The intestinal tract is not distended. There is no evidence of acute appendicitis. There is a very small hiatal hernia. There is no free intraperitoneal air. There is no drainable fluid collection. There is no free pelvic fluid. There is rectus muscle diastases. There is a small fat-containing anterior abdominal wall hernia. There are mild atherosclerotic calcifications. There is no identified abnormally enlarged lymph node in the abdomen or pelvis meeting CT size criteria for adenopathy. There is advanced disc degenerative change at L5-S1. There is no identified acute bony abnormality. IMPRESSION: CT ABDOMEN AND PELVIS. 1. 6.5 mm stone in the mid to distal right ureter with moderate right hydroureteronephrosis. 2. Multiple additional nonobstructing renal stones bilaterally. 3. Severe disc degenerative changes at L5-S1. 4. Rectus muscle diastases with small fat-containing anterior abdominal wall hernia. Departure Communication (Admissions) 1234-Feeling better at this time, ready to go home. Impression Primary Impression: Right ureteral stone Disposition: 01 HOME, SELF-CARE Condition: Stable Departure-Patient Inst. Decision time for Depature: 12:21 Referrals: NO,LOCAL PHYSICIAN (PCP) Primary Care Physician CHACE LEVI MD Patient Instructions: Kidney Stones (DC) Add. Discharge Instructions: 1. Nausea medication as directed. Use the Flomax (which is often used for men with large prostates) to help facilitate stone passage. Take the ibuprofen and the oxycodone for pain control. Return to ER for any intolerable pain, fevers, uncontrollable vomiting. If you are unable to pass the stone on your own by Monday, call Dr. Levi to make an appointment to be seen. Scripts Ondansetron (Ondansetron Odt) 4 Mg Tab.rapdis 8 MG PO Q4H PRN for NAUSEA/VOMITING, #30 TAB Prov: JESSICA HURTADO APRN 02/08/20 Cefuroxime Axetil (Cefuroxime) 250 Mg Tablet 250 MG PO BID, #10 TAB Prov: JESSICA HURTADO APRN 02/08/20 Ibuprofen (Ibuprofen) 800 Mg Tablet 800 MG PO Q8H PRN for PAIN, #30 TAB 0 Refills Prov: JESSICA HURTADO APRN 02/08/20 Tamsulosin HCl (Flomax) 0.4 Mg Cap 0.4 MG PO DAILY, #10 CAP Prov: JESSICA HURTADO APRN 02/08/20 Copy Copies To 1: CHACE LEVI MD, PETER J APRN Feb 08, 2020 11:48
[2020-02-08 11:49] LABS: BILIRUBIN,URINE NEGATIVE (NEGATIVE); CLARITY,URINE CLEAR; COLOR,URINE YELLOW; GLUCOSE, URINE (UA) NEGATIVE (NEGATIVE); KETONES,URINE NEGATIVE (NEGATIVE); LEUKOCYTE ESTERASE ,URINE TRACE (NEGATIVE); NITRITE,URINE NEGATIVE (NEGATIVE); PROTEIN,URINE TRACE (NEGATIVE)
[2020-02-08 11:51] LABS: ALBUMIN 4.5 GM/DL (3.2-4.5); CHLORIDE 110 MMOL/L (98-107); POTASSIUM 3.8 MMOL/L (3.6-5.0); SODIUM 141 MMOL/L (135-145)
[2020-02-08 11:52] LABS: CALCIUM 9.5 MG/DL (8.5-10.1)
[2020-02-08 11:53] LABS: GLUCOSE 121 MG/DL (70-105)
[2020-02-08 11:54] LABS: TOTAL PROTEIN 7.8 GM/DL (6.4-8.2)
[2020-02-08 11:55] LABS: BACTERIA,URINE TRACE /HPF; WBC,URINE RARE /HPF
[2020-02-08 11:55] LABS: BILIRUBIN,TOTAL 0.3 MG/DL (0.1-1.0); CARBON DIOXIDE 20 MMOL/L (21-32)
[2020-02-08 11:57] LABS: ALKALINE PHOSPHATASE 89 U/L (40-136); CREATININE SERUM 0.81 MG/DL (0.60-1.30); GFR ESTIMATED > 60
[2020-02-08 11:58] LABS: BUN/CREATININE RATIO 20
[2020-02-08 12:00] LABS: ALANINE AMINOTRANSFERASE 25 U/L (0-55)
--- NOTE | 2020-02-08 12:27 | Diagnostic Imaging Report ---
PROCEDURE: CT urinary tract, rule out kidney stone. TECHNIQUE: Multiple contiguous axial images were obtained through the abdomen and pelvis without the use of intravenous contrast. Auto Exposure Controls were utilized during the CT exam to meet ALARA standards for radiation dose reduction. DATE: February 08, 2020. COMPARISON: Ultrasound October 09, 2018. CT abdomen and pelvis August 05, 2012. INDICATION: 39-year-old female, right-sided abdominal pain. FINDINGS: There are limitations for evaluation of the abdominal organs, neoplastic processes, abscess, and limited evaluation of the vasculature relating to the lack of intravenous contrast. The visualized portions of the lung bases are clear. The heart is not enlarged. There is no pericardial effusion. The liver is normal in size and contour. The gallbladder is unremarkable. There is no intrahepatic or extrahepatic bile duct dilation. The main pancreatic duct is not abnormally dilated. Limited noncontrast evaluation of the pancreas is unremarkable. The spleen is normal in size. The adrenal glands are unremarkable. There are several nonobstructing renal stones bilaterally. There is moderate right hydronephrosis and moderate right hydroureter. There is a stone in the mid to distal right ureter measuring 6.5 mm in size in axial image 92. There is no additionally identified ureteral stone. Urinary bladder is unremarkable. There are pelvic calcifications compatible with phleboliths. The intestinal tract is not distended. There is no evidence of acute appendicitis. There is a very small hiatal hernia. There is no free intraperitoneal air. There is no drainable fluid collection. There is no free pelvic fluid. There is rectus muscle diastases. There is a small fat-containing anterior abdominal wall hernia. There are mild atherosclerotic calcifications. There is no identified abnormally enlarged lymph node in the abdomen or pelvis meeting CT size criteria for adenopathy. There is advanced disc degenerative change at L5-S1. There is no identified acute bony abnormality. IMPRESSION: CT ABDOMEN AND PELVIS. 1. 6.5 mm stone in the mid to distal right ureter with moderate right hydroureteronephrosis. 2. Multiple additional nonobstructing renal stones bilaterally. 3. Severe disc degenerative changes at L5-S1. 4. Rectus muscle diastases with small fat-containing anterior abdominal wall hernia. Dictated by: Dictated on workstation # [id number]
--- NOTE | 2020-02-08 12:28 | Diagnostic Imaging Report ---
EXAMINATION: Abdominal radiographs, single supine view. 2 images. DATE: February 08, 2020. CLINICAL INDICATION: 39-year-old female, right abdominal pain. COMPARISON: Same day CT abdomen and pelvis February 08, 2020. COMMENTS: There are pelvic calcifications compatible with phleboliths. The 6.5 mm stone in the mid distal right ureter is visible and near the inferior margin of the sacroiliac joints in its craniocaudal extent. There are multiple nonobstructing renal stones bilaterally. There are no abnormally distended gas-filled segments of bowel. IMPRESSION: 1. The 6.5 mm right ureteral stone is visible near the craniocaudal level of the inferior aspect of the right sacroiliac joint. 2. Nonobstructing renal stones bilaterally. 3. Unremarkable bowel gas pattern. Dictated by: Dictated on workstation # [id number]
[2020-02-08] MEDS ORDERED: ONDA4TAB11 PO (12:39)
[2020-02-08] MEDS ORDERED: TMSL.4C PO (12:39)
[2020-02-08] MEDS ORDERED: OXYC-471 PO (12:39)
[2020-02-08] MEDS ORDERED: CEFU250T80 PO (12:39)
[2020-02-08] MEDS ORDERED: IBUP-1780 PO (12:39)
[2020-02-08 12:50] VITALS: BP 153/84
== END 2020-02-08 12:50 | disposition home or self-care (01) ==
LOC: EDUNIT# 10:59 → ER 11:00
DX: N13.2 Hydronephrosis with renal and ureteral calculous obstruction (principal); I10 Essential (primary) hypertension; Z88.0 Allergy status to penicillin; Z87.891 Personal history of nicotine dependence; Z82.49 Family history of ischemic heart disease and other diseases of the circulatory system
CPT/HCPCS: 36415; 74018; 74176; 80053; 81000; 85025

== ENCOUNTER → 2020-11-17 | Outpatient (CLI) | payer BC ==
[~2020-11-17] MED LIST changes: +AMLO-250 PO; +AMLO-251 PO; -AMLO10TA7 PO; -AMLO5TAB9 PO; +CEFU250T80 PO; +IBUP-1780 PO; +OXC5T PO; +OXYC1TAB11 PO; -OXYC5TAB96 PO; +TMSL.4C PO
--- NOTE | 2020-11-18 06:31 | Diagnostic Imaging Report ---
INDICATION: Routine screening. Comparison is made with prior mammogram from 02/19/2015. 2-D and 3-D bilateral screening mammography was performed with a Computer Aided Detection (CAD) system. 3-D tomosynthesis was also performed and reviewed. FINDINGS: Both breasts are heterogeneously dense, limiting the sensitivity of mammography. No spiculated mass or malignant appearing microcalcifications are seen. Occasional benign calcifications are noted. Axillae are unremarkable. IMPRESSION: No mammographic features suspicious for malignancy are identified. ACR BI-RADS Category 2: Benign findings. Result letter will be mailed to the patient. Note: At least 10% of breast cancer is not imaged by mammography. Dictated by: Dictated on workstation # [id number]
== END ==
LOC: RAD 15:01
PROVIDERS: ATTEND Obstetrics & Gynecology
DX: Z12.31 Encounter for screening mammogram for malignant neoplasm of breast (principal)
CPT/HCPCS: 77063; 77067

== ENCOUNTER 2021-10-31 12:05 | Day surgery (SDC) | payer OTHER ==
[2021-10-31] VITALS (10 sets, daily range): BP systolic 147–169; BP diastolic 73–94
[~2021-10-31] VITALS: Ht 175 cm; Wt 117.0 kg
[~2021-10-31 12:05] MED LIST changes: +CYCL10TA25 PO; -CYCL10TA9 PO
--- NOTE | 2021-10-31 12:17 | ED Abdominal Pain ---
General Stated Complaint: ABD PAIN / VOMTING Source of Information: Patient Exam Limitations: No Limitations (MILLIE MCGILL MD) Source of Information: Patient Exam Limitations: No Limitations (BRISEIDA TURCIOS MED STUDENT) History of Present Illness Date Seen by Provider: Oct 31, 2021 Time Seen by Provider: 12:17 (MILLIE MCGILL MD) Initial Comments Mrs. Short is a 41 yo female with PMH of kidney stones and umbilical hernia that presents with abdominal pain. States that the pain started about 0930 this morning when she woke up. She noticed that her mouth was watering a little bit and then the pain came on. States the pain is in the bilateral upper quadrants of her abdomen. States it radiates from the middle mostly to the L side. She has not tried to take anything to help the pain. Nothing specific makes the pain worse. She has not been able to keep anything down this morning and has been vomiting a bunch. This does not feel like previous kidney stones. She states she does have an umbilical hernia that has been tender for a while now. She denies any other symptoms, no fevers, chest pain, SOB, changes with urination or stooling. States she is not , is on control and a recent negative preg test. (BRISEIDA TURCIOS MED STUDENT) Allergies and Home Medications Allergies Coded Allergies: ampicillin (Verified Allergy, Unknown, RASH, 11/10/17) Patient Home Medication List Home Medication List Reviewed: Yes (MILLIE MCGILL MD) Amlodipine Besylate (Amlodipine Besylate) 10 Mg Tablet, 10 MG PO DAILY Prescribed by: TYRA PALM on 12/20/19 1143 Docusate Sodium (Colace) 100 Mg Capsule, 100 MG PO BID Prescribed by: EVELIA GORDON on 10/31/21 1635 Hydrocodone/Acetaminophen (Hydrocodone-Acetamin 5-325 mg) 1 Each Tablet, 1 EACH PO Q4H PRN for PAIN-MODERATE (5-7) Prescribed by: EVELIA GORDON on 10/31/21 1636 Ibuprofen (Ibu) 600 Mg Tablet, 600 MG PO Q6HR Prescribed by: TYRA PALM on 12/20/19 1143 Ibuprofen (Ibuprofen) 800 Mg Tablet, 800 MG PO Q8H PRN for PAIN Prescribed by: JESSICA HURTADO on 02/08/20 1239 Ondansetron (Ondansetron Odt) 4 Mg Tab.rapdis, 8 MG PO Q4H PRN for NAUSEA/VOMITING Prescribed by: JESSICA HURTADO on 02/08/20 1239 Vit/Iron Fumarate/FA ( Tablet) 1 Each Tablet, 1 EACH PO DAILY, (Reported) Entered as Reported by: PATRICK ULLOA on 09/02/19 1338 Discontinued Medications Acetaminophen (Acetaminophen) 500 Mg Tablet, 1,000 MG PO Q8HR Prescribed by: TYRA PALM on 12/20/19 1143 Cefuroxime Axetil (Cefuroxime) 250 Mg Tablet, 250 MG PO BID Prescribed by: JESSICA HURTADO on 02/08/20 1239 Oxycodone HCl/Acetaminophen (Oxycodone-Acetaminophen 5-325) 1 Each Tablet, 1 EACH PO Q4H PRN for PAIN-MODERATE Prescribed by: JESSICA HURTADO on 02/08/20 1239 Oxycodone Hcl (Oxyir Tablet) 5 Mg Tablet, 5 MG PO Q4HR PRN for PAIN-SEVERE (8- 10) Prescribed by: TYRA PALM on 12/20/19 1143 Tamsulosin HCl (Flomax) 0.4 Mg Cap, 0.4 MG PO DAILY Prescribed by: JESSICA HURTADO on 02/08/20 1239 Review of Systems Review of Systems Constitutional: No chills, No fever EENTM: No Blurred Vision, No Double Vision Respiratory: Denies Cough, Denies Shortness of Air Cardiovascular: Denies Chest Pain, Denies Edema Gastrointestinal: Abdominal Pain (Epigastric, Umbilical, RUQ, LUQ); Denies Blood Streaked Stools, Denies Constipated, Denies Diarrhea; Nausea, Vomiting Genitourinary: Denies Burning, Denies Frequency Musculoskeletal: No joint pain, No joint swelling Skin: No pruritus, No rash Psychiatric/Neurological: Denies Headache, Denies Numbness (BRISEIDA TURCIOS MED STUDENT) Past Kaknzla-Vuvtxt-Rbpeto Hx Immunizations Up To Date Tetanus Booster (TDap): Unknown (MILLIE MCGILL MD) Seasonal Allergies Seasonal Allergies: No (MILLIE MCGILL MD) Past Medical History Surgeries: Yes (IUD REMOVAL, KIDNEY STONES, ANKLE X2) Section, Orthopedic Respiratory: No Cardiac: Yes Hypertension Neurological: No Reproductive Disorders: No Female Reproductive Disorders: Denies 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 Sexually Transmitted Disease: No HIV/AIDS: No Genitourinary: Yes Bladder Infection, Kidney Stones Gastrointestinal: No Musculoskeletal: No Endocrine: No HEENT: No Loss of Vision: Bilateral Hearing Impairment: Denies Cancer: No Psychosocial: No Integumentary: Yes (ELBOWS/ANKLES) Psoriasis Blood Disorders: No Adverse Reaction/Blood Tranf: No (N/A) (MILLIE MCGILL MD) Family Medical History Hypertension 19 MOTHER Kidney stones 19 MOTHER G8 BROTHER G8 SISTER Myocardial infarction 19 MOTHER Thyroid disease 19 MOTHER Physical Exam Vital Signs Vital Signs - First Documented 10/31/21 12:12 Temp 36.7 Pulse 82 Resp 18 Pulse Ox 98 O2 Delivery Room Air (BRISEIDA TURCIOS MED STUDENT) Vital Signs Capillary Refill : (MILLIE MCGILL MD) Height/Weight/BMI Height: 5'10.00" Weight: 260lbs. 0oz. 117.632401sn; 38.00 BMI Method:Stated Gastrointestinal: other (soft abdomen, diffusely tender; small firm umbilical hernia that is not reducible, even after IV Morphine. positive bowel sounds) (MILLIE MCGILL MD) General Appearance: WD/WN, moderate distress, obese HEENT: PERRL/EOMI, pharynx normal Respiratory: chest non-tender, lungs clear, normal breath sounds Cardiovascular: regular rate, rhythm, no edema, no murmur Peripheral Pulses: 2+ Radial Pulses (R), 2+ Radial Pulses (L) Gastrointestinal: normal bowel sounds (quiet but present), soft; No guarding; tenderness (Epigastric, Umbilical, RUQ, LUQ), hernia (Umbilical, unreducable, firm), other (Negative murphys, negative mcburney, psoas) Rectal: deferred Extremities: no pedal edema, no calf tenderness, normal capillary refill Neurologic/Psychiatric: alert, normal mood/affect, oriented x 3 Skin: normal color, warm/dry (BRISEIDA TURCIOS STUDENT) Progress/Results/Core Measures Results/Orders Lab Results Laboratory Tests Test 10/31/21 12:18 Range/Units White Blood Count 8.9 4.3-11.0 10^3/uL Red Blood Count 4.90 3.80-5.11 10^6/uL Hemoglobin 14.5 11.5-16.0 g/dL Hematocrit 44 35-52 % Mean Corpuscular Volume 90 80-99 fL Mean Corpuscular Hemoglobin 30 25-34 pg Mean Corpuscular Hemoglobin Concent 33 32-36 g/dL Red Cell Distribution Width 13.4 10.0-14.5 % Platelet Count 333 130-400 10^3/uL Mean Platelet Volume 9.9 9.0-12.2 fL Immature Granulocyte % (Auto) 0 % Neutrophils (%) (Auto) 62 42-75 % Lymphocytes (%) (Auto) 28 12-44 % Monocytes (%) (Auto) 7 0-12 % Eosinophils (%) (Auto) 2 0-10 % Basophils (%) (Auto) 1 0-10 % Neutrophils # (Auto) 5.6 1.8-7.8 X 10^3 Lymphocytes # (Auto) 2.5 1.0-4.0 X 10^3 Monocytes # (Auto) 0.6 0.0-1.0 X 10^3 Eosinophils # (Auto) 0.2 0.0-0.3 10^3/uL Basophils # (Auto) 0.1 0.0-0.1 10^3/uL Immature Granulocyte # (Auto) 0.0 0.0-0.1 10^3/uL (BRISEIDA TURCIOS MED STUDENT) Medications Given in ED Current Medications Medications Dose Ordered Sig/Guillermina Route Start Time Stop Time Status Last Admin Dose Admin Ondansetron HCl 4 mg ONCE ONCE IVP 10/31/21 12:30 10/31/21 12:31 DC 10/31/21 12:27 4 MG (BRISEIDA TURCIOS MED STUDENT) Vital Signs/I&O 10/31/21 12:12 Temp 36.7 Pulse 82 Resp 18 B/P (MAP) Pulse Ox 98 O2 Delivery Room Air (BRISEIDA TURCIOS MED STUDENT) Progress Progress Note : Time: 13:46 Progress Note discussed with Dr Gordon; will be in to see (MILLIE MCGILL MD) Progress Note : Time: 12:51 Progress Note Interviewed and examined patient. Negative Mcburney and murphys less concerning for possible galbladder or appendix cause. Pt states this also doesnt feel like kidney stones from previous and is likely not . Had a bowel movement this morning, less concerning for obstruction/constipation. Due to tenderness and unable to reduce hernia will get CT to evaluate for possible incarceration or ischemia of hernia contents. Also getting basic labs including lipase. Pt is agreeable to the plan. Has gotten zofran, morphine, and will be giving fluids. (BRISEIDA TURCIOS MED STUDENT) Diagnostic Imaging Diagonstic Imaging: CT Comments [facility], [place] NAME: ANTONI SHORT [facility] REC#: [id number] PT STATUS: REG ER : 1980 PHYSICIAN: MILLIE MCGILL MD ADMIT DATE: 10/31/21/ER Draft Date of Exam:10/31/21 CT ABDOMEN/PELVIS W EXAMINATION: CT abdomen and pelvis with intravenous contrast. TECHNIQUE: Multiple contiguous axial images were obtained through the abdomen and pelvis after the uneventful administration of intravenous contrast. All CT scans use one or more of the following dose optimizing techniques: automated exposure control, MA and/or KvP adjustment based on patient size and exam type or iterative reconstruction. HISTORY: Abdominal pain, umbilical hernia COMPARISON: 02/08/2020 FINDINGS: Limited views of the lower thorax are unremarkable. The liver is normal without focal lesion. There is no biliary ductal dilation. Gallbladder is normal. Pancreas is normal. Spleen is normal. Adrenal glands are normal. The kidneys are normal. There is no hydronephrosis. Urinary bladder is normal. There is a umbilical hernia containing a loop of bowel with dilation of the herniated portion of the bowel and mild upstream dilation. There is stranding in the omental fat within the hernia and fluid in the hernia sac. No free fluid or air. No abdominal or pelvic lymphadenopathy. Aorta is normal in caliber without aneurysm. There are no suspicious osseus lesions. IMPRESSION: 1. Fat and bowel containing umbilical hernia with evidence for obstruction and/or strangulation of herniated bowel. Upstream bowel is only mildly dilated but there is focal dilation of the herniated bowel segment. There is also fluid in the hernia and stranding in the omentum. Dictated on workstation # [id number] Dict: 10/31/21 1331 Trans: 10/31/21 1333 [facility] [id number] Interpreted by: MYLENE BORJAS MD Electronically signed by: (MILLIE MCGILL MD) Departure Communication (Admissions) Time/Spoke to Admitting Phy: 13:[address] Gordon (MILLIE MCGILL MD) Impression Primary Impression: Incarcerated umbilical hernia Disposition: ADMITTED INPATIENT Condition: Stable Admissions Decision to Admit Reason: Admit from ER (General) Decision to Admit/Date: Oct 31, 2021 Time/Decision to Admit Time: 13:46 (MILLIE MCGILL MD) Departure-Patient Inst. Referrals: NO,LOCAL PHYSICIAN (PCP/Family) Primary Care Physician Scripts Hydrocodone/Acetaminophen (Hydrocodone-Acetamin 5-325 mg) 1 Each Tablet 1 EACH PO Q4H PRN for PAIN-MODERATE (5-7), #30 TAB Prov: EVELIA GORDON DO 10/31/21 Docusate Sodium (Colace) 100 Mg Capsule 100 MG PO BID, #30 CAP Prov: EVELIA GORDON DO 10/31/21 Verification and Attestation of Medical Student E/M Service A medical student performed and documented this service in my presence. I reviewed and verified all information documented by the medical student and made modifications to such information, when appropriate. I personally performed the physical exam and medical decision making. Millie Mcgill, Oct 31, 2021,13:47 (MILLIE MCGILL MD) MILLIE MCGILL MD Oct 31, 2021 12:17 BRISEIDA TURCIOS MED STUDENT Oct 31, 2021 12:43
[2021-10-31] MEDS ORDERED: ONDANSETRON 4 MG/2 ML (SDV) Z0FRAN ONE ×2 (12:25→14:53)
[2021-10-31] MEDS ORDERED: ONDANSETRON 4 MG/2 ML (SDV) Z0FRAN IVP ONE (12:30)
[2021-10-31 12:36] LABS: BASOPHILS # (AUTO) 0.1 10^3/uL (0.0-0.1); BASOPHILS % (AUTO) 1 % (0-10); EOSINOPHILS # (AUTO) 0.2 10^3/uL (0.0-0.3); EOSINOPHILS % (AUTO) 2 % (0-10); HEMATOCRIT 44 % (35-52); HEMOGLOBIN 14.5 g/dL (11.5-16.0); LYMPHOCYTES # (AUTO) 2.5 X 10^3 (1.0-4.0); LYMPHOCYTES % (AUTO) 28 % (12-44); MEAN CORPUSCULAR HEMOGLOBIN 30 pg (25-34); MEAN CORPUSCULAR HGB CONC 33 g/dL (32-36); MEAN CORPUSCULAR VOLUME 90 fL (80-99); MEAN PLATELET VOLUME 9.9 fL (9.0-12.2); MONOCYTES # (AUTO) 0.6 X 10^3 (0.0-1.0); MONOCYTES % (AUTO) 7 % (0-12); NEUTROPHILS # (AUTO) 5.6 X 10^3 (1.8-7.8); NEUTROPHILS % (AUTO) 62 % (42-75); PLATELET COUNT 333 10^3/uL (130-400); WHITE BLOOD COUNT 8.9 10^3/uL (4.3-11.0)
[2021-10-31] MEDS ORDERED: morphine INJ 10 MG/ML 1ML (SYR OR VIAL) ONE (12:37)
[2021-10-31] MEDS ORDERED: morphine INJ 10 MG/ML 1ML (SYR OR VIAL) IVP STA (12:42)
[2021-10-31] MEDS ORDERED: NS 100 ML (IVPB) BAG IV ONE (12:45)
[2021-10-31] MEDS ORDERED: HOLD METFORMIN - RECEIVED CONTRAST 20 ML VIAL IV SCH (12:45)
[2021-10-31] MEDS ORDERED: IOHEXOL 350 MG/ML 100 ML (OMNIPAQUE 350) VIAL IV ONE (12:45)
[2021-10-31 12:51] LABS: ALBUMIN 4.5 GM/DL (3.2-4.5); POTASSIUM 3.9 MMOL/L (3.6-5.0)
[2021-10-31 12:52] LABS: CALCIUM 9.5 MG/DL (8.5-10.1)
[2021-10-31 12:53] LABS: TOTAL PROTEIN 7.9 GM/DL (6.4-8.2)
[2021-10-31 12:55] LABS: BILIRUBIN,TOTAL 0.5 MG/DL (0.1-1.0)
[2021-10-31 12:57] LABS: CREATININE SERUM 0.7 MG/DL (0.60-1.30)
--- NOTE | 2021-10-31 13:33 | Diagnostic Imaging Report ---
EXAMINATION: CT abdomen and pelvis with intravenous contrast. TECHNIQUE: Multiple contiguous axial images were obtained through the abdomen and pelvis after the uneventful administration of intravenous contrast. All CT scans use one or more of the following dose optimizing techniques: automated exposure control, MA and/or KvP adjustment based on patient size and exam type or iterative reconstruction. HISTORY: Abdominal pain, umbilical hernia COMPARISON: 02/08/2020 FINDINGS: Limited views of the lower thorax are unremarkable. The liver is normal without focal lesion. There is no biliary ductal dilation. Gallbladder is normal. Pancreas is normal. Spleen is normal. Adrenal glands are normal. The kidneys are normal. There is no hydronephrosis. Urinary bladder is normal. There is a umbilical hernia containing a loop of bowel with dilation of the herniated portion of the bowel and mild upstream dilation. There is stranding in the omental fat within the hernia and fluid in the hernia sac. No free fluid or air. No abdominal or pelvic lymphadenopathy. Aorta is normal in caliber without aneurysm. There are no suspicious osseus lesions. IMPRESSION: 1. Fat and bowel containing umbilical hernia with evidence for obstruction and/or strangulation of herniated bowel. Upstream bowel is only mildly dilated but there is focal dilation of the herniated bowel segment. There is also fluid in the hernia and stranding in the omentum. Dictated by: Dictated on workstation # [id number]
--- NOTE | 2021-10-31 14:33 | History & Physical-Surgical ---
History of Present Illness History of Present Illness Reason for visit/HPI CC Incarcerated umbilical hernia. Seen and evaluated in ED. Patient is a 41 year old female who has had umbilical hernia for years she s tatneal. Over the last few weeks she has been having increasing discomfort. This morning around 0930 patient having more pain and having nausea and emesis. Having pain that radiates from umbilicus towards left side. Nothing making pain better or worse. She had ct scan showing umbilical hernia containing fat and small bowel with some proximal dilation of small bowel. Denies fever sweats chills shortness of breath or chest pain. . Date of Admission T Date Seen by a Provider: Oct 31, 2021 Time Seen by a Provider: 14:32 I consulted on this patient on 10/31/21 14:28 Attending Physician Admitting Physician No,Local Physician Consult Allergies and Home Medications Allergies Coded Allergies: ampicillin (Verified Allergy, Unknown, RASH, 11/10/17) Patient Home Medication List Home Medication List Reviewed: Yes Acetaminophen (Acetaminophen) 500 Mg Tablet, 1,000 MG PO Q8HR Prescribed by: TYRA PALM on 12/20/19 1143 Amlodipine Besylate (Amlodipine Besylate) 10 Mg Tablet, 10 MG PO DAILY Prescribed by: TYRA PALM on 12/20/19 1143 Cefuroxime Axetil (Cefuroxime) 250 Mg Tablet, 250 MG PO BID Prescribed by: JESSICA HURTADO on 02/08/20 1239 Ibuprofen (Ibu) 600 Mg Tablet, 600 MG PO Q6HR Prescribed by: TYRA PALM on 12/20/19 1143 Ibuprofen (Ibuprofen) 800 Mg Tablet, 800 MG PO Q8H PRN for PAIN Prescribed by: JESSICA HURTADO on 02/08/20 1239 Ondansetron (Ondansetron Odt) 4 Mg Tab.rapdis, 8 MG PO Q4H PRN for NAUSEA/VOMITING Prescribed by: JESSICA HURTADO on 02/08/20 1239 Oxycodone HCl/Acetaminophen (Oxycodone-Acetaminophen 5-325) 1 Each Tablet, 1 EACH PO Q4H PRN for PAIN-MODERATE Prescribed by: JESSICA HURTADO on 02/08/20 1239 Oxycodone Hcl (Oxyir Tablet) 5 Mg Tablet, 5 MG PO Q4HR PRN for PAIN-SEVERE (8- 10) Prescribed by: TYRA PALM on 12/20/19 1143 Vit/Iron Fumarate/FA ( Tablet) 1 Each Tablet, 1 EACH PO DAILY, (Reported) Entered as Reported by: PATRICK ULLOA on 09/02/19 1338 Tamsulosin HCl (Flomax) 0.4 Mg Cap, 0.4 MG PO DAILY Prescribed by: JESSICA HURTADO on 02/08/20 1239 Past Vhkbdrf-Lkrkyf-Abifhh Hx Patient Social History Former Smoker, Quit: Dec 16, 2008 Type Used: Cigarettes 2nd Hand Smoke Exposure: No Recent Hopitalizations: Yes ( 01/21) Alcohol Use?: Yes Substance type: Marijuana Immunizations Up To Date Tetanus Booster (TDap): Unknown Date of Influenza Vaccine: Jul 28, 2019 Seasonal Allergies Seasonal Allergies: No Surgeries History of Surgeries: Yes (IUD REMOVAL, KIDNEY STONES, ANKLE X2) Surgeries: Section, Orthopedic Respiratory History of Respiratory Disorde: No Cardiovascular History of Cardiac Disorders: Yes Cardiac Disorders: Hypertension Neurological History of Neurological Disord: No Reproductive System Hx Reproductive Disorders: No Sexually Transmitted Disease: No HIV/AIDS: No Female Reproductive Disorders: Denies 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 Genitourinary History of Genitourinary Disor: Yes Genitourinary Disorders: Bladder Infection, Kidney Stones Gastrointestinal History of Gastrointestinal Di: No Musculoskeletal History of Musculoskeletal Dis: No Endocrine History of Endocrine Disorders: No HEENT History of HEENT Disorders: No Loss of Vision: Bilateral Hearing Impairment: Denies Cancer History of Cancer: No Psychosocial History of Psychiatric Problem: No Integumentary History of Skin or Integumenta: Yes (ELBOWS/ANKLES) Skin/Integumentary Disorders: Psoriasis Blood Transfusions History of Blood Disorders: No Adverse Reaction to a Blood Tr: No (N/A) Reviewed Nursing Assessment Reviewed/Agree w Nursing PMH: Yes Family Medical History Significant Family History: No Pertinent Family Hx Family Medial History: Hypertension 19 MOTHER Kidney stones 19 MOTHER G8 BROTHER G8 SISTER Myocardial infarction 19 MOTHER Thyroid disease 19 MOTHER Review of Systems Constitutional: No malaise, No weakness EENTM: No blurred vision, No double vision Respiratory: No dyspnea on exertion, No short of breath Cardiovascular: No chest pain, No palpitations Gastrointestinal: abdominal pain, nausea, vomiting Genitourinary: No decreased output, No discharge Musculoskeletal: No back pain, No joint pain Skin: No change in color, No change in hair/nails Psychiatric/Neurological: Denies Depressed, Denies Emotional Problems All Other Systems Reviewed Negative Unless Noted: Yes (Negative excepted noted.) Physical Exam Vital Signs Vital Signs - First Documented 10/31/21 12:12 Temp 36.7 Pulse 82 Resp 18 Pulse Ox 98 O2 Delivery Room Air Capillary Refill : Less Than 3 Seconds Height, Weight, BMI Height: 5'10.00" Weight: 260lbs. 0oz. 117.816538cf; 38.00 BMI Method:Stated General Appearance: No Apparent Distress, WD/WN, Obese HEENT: PERRL/EOMI, Normal ENT Inspection Neck: Non Tender, Supple Respiratory: Chest Non Tender, No Accessory Muscle Use, No Respiratory Distress Cardiovascular: Regular Rate, Rhythm, No JVD Gastrointestinal: Hernia (incarcerated umbilical), Tenderness (periumbilical area.) Rectal: Deferred Back: No CVA Tenderness, No Vertebral Tenderness Extremity: Non Tender, No Calf Tenderness Neurologic/Psychiatric: Alert, Oriented x3, No Motor/Sensory Deficits Skin: Normal Color, Warm/Dry Lymphatic: No Adenopathy Data Review Labs Laboratory Tests 10/31/21 12:18: White Blood Count 8.9, Red Blood Count 4.90, Hemoglobin 14.5, Hematocrit 44, Mean Corpuscular Volume 90, Mean Corpuscular Hemoglobin 30, Mean Corpuscular Hemoglobin Concent 33, Red Cell Distribution Width 13.4, Platelet Count 333, Mean Platelet Volume 9.9, Immature Granulocyte % (Auto) 0, Neutrophils (%) (Aut o) 62, Lymphocytes (%) (Auto) 28, Monocytes (%) (Auto) 7, Eosinophils (%) (Auto) 2, Basophils (%) (Auto) 1, Neutrophils # (Auto) 5.6, Lymphocytes # (Auto) 2.5, Monocytes # (Auto) 0.6, Eosinophils # (Auto) 0.2, Basophils # (Auto) 0.1, Immature Granulocyte # (Auto) 0.0, Sodium Level 141, Potassium Level 3.9, Chloride Level 110H, Carbon Dioxide Level 20L, Anion Gap 11, Blood Urea Nitrogen 11, Creatinine 0.70, Estimat Glomerular Filtration Rate 111, BUN/Creatinine Ratio 16, Glucose Level 120H, Calcium Level 9.5, Corrected Calcium 9.1, Total Bilirubin 0.5, Aspartate Amino Transf (AST/SGOT) 18, Alanine Aminotransferase (ALT/SGPT) 20, Alkaline Phosphatase 102, Total Protein 7.9, Albumin 4.5, Lipase 16, Serum Test, Qualitative NEGATIVE Assessment/Plan Assessment/Plan Admission Diagonsis incarcerated umbilical hernia possible strangulated PSBO secondary to above nausea vomiting periumbilical abdominal pain Admission Status: Observation Assessment/Plan incarcerated umbilical hernia possible strangulated PSBO secondary to above nausea vomiting periumbilical abdominal pain patient with incarcerated umbilical hernia possibly strangulated. we discussed risks and benefits of diagnostic laparoscopy all other indicated procedures possible open and she wishes to proceed. we discussed possible options of doing umbilical hernia repair depending on findings and possible need for small bowel obstruction. Patient understands and agrees. NPO IV Hydration To OR EVELIA GORDON DO Oct 31, 2021 14:33
[2021-10-31] MEDS ORDERED: LIDOCAINE/EPI 1%-1:200,000 (XYLOCAINE) 30 ML VIAL ONE (14:42)
[2021-10-31] MEDS ORDERED: ceFAZolin INJECTION 2,000 MG ONE (14:45)
[2021-10-31] MEDS ORDERED: SEVOFLURANE (ULTANE) 15 ML INHAL SOLN ONE ×2 (14:53→16:22)
[2021-10-31] MEDS ORDERED: proPOfol 200 MG/20 ML (DIPRIVAN) VIAL IV ONE (14:53)
[2021-10-31] MEDS ORDERED: fentaNYL INJ 100 MCG/2 ML AMP ONE (14:53)
[2021-10-31] MEDS ORDERED: MIDAZOLAM 2 MG/2 ML (VERSED) VIAL ONE (14:53)
[2021-10-31] MEDS ORDERED: LIDOCAINE PF 2% 5 ML (XYLOCAINE) VIAL ONE (14:53)
[2021-10-31] MEDS ORDERED: ceFAZolin 2 GM IV Premixed 50 ML IV ONE (15:00)
[2021-10-31] MEDS ORDERED: SCOPOLAMINE 1.5 MG (TRANSDERM-SCOP) PATCH ONE (15:10)
[2021-10-31] MEDS ORDERED: FAMOTIDINE 20MG/2ML IV (PEPCID) ONE (15:11)
[2021-10-31] MEDS ORDERED: LACTATED RINGERS 1,000 ML IV PRN (15:30)
[2021-10-31] MEDS ORDERED: METOCLOPRAMIDE INJ 10 MG/2 ML (REGLAN) ONE (15:31)
[2021-10-31] MEDS ORDERED: HYDROmorphone 2 MG/ML VIAL (DILAUDID) ONE (15:34)
[2021-10-31] MEDS ORDERED: ESMOLOL 100 MG/10 ML (BREVIBLOC) VIAL ONE (15:43)
[2021-10-31] MEDS ORDERED: ROCURONIUM 10 MG/ML 5 ML SYRINGE IV ONE (16:16)
[2021-10-31] MEDS ORDERED: KETOROLAC 30 MG/ML VIAL ONE (16:22)
--- NOTE | 2021-10-31 16:33 | Progress Note-Post Operative ---
Post-Operative Progess Note Surgeon (s)/Vice President Of Talent Management (s) Surgeon EVELIA GORDON DO Vice President Of Talent Management: na Pre-Operative Diagnosis incarcerated umbilical hernia Post-Operative Diagnosis same Procedure & Operative Findings Date of Procedure 10/31/21 Procedure Performed/Findings PROCEDURE: Diagnostic Laparoscopy with incarcerated umbilical hernia repair with mesh. COMPLICATIONS: None. INDICATIONS: The patient is a 41, female with an umbilical hernia, which has continued to increase in size and cause discomfort. It is incarcerated and concern for strangulation. The patient was explained the risk and benefits of the procedure and wished to proceed with the procedure. Consent was signed on the chart. DESCRIPTION OF PROCEDURE: The patient was taken into the operating suite, prepped and draped in sterile fashion. Surgical pause was performed. Local anesthetic was infiltrated in left upper quadrant. A 11 blade scalpel was used to make a small skin incision. Cautery was used to dissect down to the fascia, which was then scored and divided the muscle, went through the posterior sheath and a balloon trocar was inserted into the abdomen. Bunt dissection was used and able to reduce the umbilical hernia The abdomen was then insufflated. Two 5 mm trocars were placed in the left lower quadrant. The small bowel that was incarcerated through the umbilical defect was viable, minimally inflamed. Echo Ventralight mesh was then inserted in the abdomen grabbed through the stab incision. The balloon was inflated on the mesh. In order to tack the left side of mesh due to diastasis two 5 mm ports had to be placed on right side of abdomen. Circumferential tacks were placed with a SecureStrap Tacker. The balloon was then removed and inner crown was created as well. The mesh was tacked with pressure being decreased. The 12 mm fascial defect was then closed using 0 Vicryl. The abdomen was then desufflated,the trocars were removed. The skin was then closed using 4-0 Monocryl in a running subcuticular fashion. The abdomen was washed and dried and Skin Affix was placed over the incisions. The patient tolerated procedure well without any complications. She was taken to recovery room in stable condition. Anesthesia Type general Estimated Blood Loss Estimated blood loss (mL): minimal Specimens/Packing Specimens Removed EVELIA Kelly DO Oct 31, 2021 16:33
[2021-10-31] MEDS ORDERED: ACHD5005 PO (16:35)
[2021-10-31] MEDS ORDERED: DOCU-143 PO (16:35)
--- NOTE | 2021-10-31 16:37 | Discharge Inst-Simple/Standard ---
Discharge Inst-Standard Discharge Medications New, Converted or Re-Newed RX: Transmitted to Pharmacy Patient Instructions/Follow Up Plan of Care/Instructions/FU: 2-3 weeks Yanira Activity as Tolerated: No Discharge Diet: Regular Diet Other Inst to Patient Follow up Appt: Make appointment for 2-3 week Yanira. Instructions: No lifting greater than 10 pounds. No strenuous activity. May shower in 24 hours, no tub bath or soaking. Use incentive spirometer at home as directed. No Smoking Skin/Wound Care: You have special glue over your incision that will fall off on it's own. Symptoms to Report: Appetite Changes, Extremity Discoloration, Numbness/Tingling, Swelling Increased, Bleeding Excessive, Eyesight Changes, Pain Increased, Urine Color Change, Constipation(Persistent), Fever over 101 degree F, Pain/Pressure in chest, Urinating Difficulty, Cough Up/Vomit Blood, Heart Beat Irreg/Pounding, Pain/Pressure in jaw, Vaginal Bleeding Increase, Cramps in feet or legs, Lightheadedness, Pain/Pressure in shoulder, Diarrhea(Persistent), Memory Changes Suddenly, Questions/Concerns, Weight gain consecutive days, Dizziness/Fainting, Nausea/Vomiting, Shortness of Breath, Weight gain over 2 pounds If questions or concerns contact your physician Or seek help at emergency department. EVELIA GORDON DO Oct 31, 2021 16:37
[2021-10-31] MEDS ORDERED: HYDROmorphone 2 MG/ML VIAL (DILAUDID) IV ONE (16:45)
[2021-10-31] MEDS: ONDANSETRON 4 MG/2 ML (SDV) Z0FRAN IVP PRN ×2 (16:49→17:08)
--- NOTE | 2021-10-31 16:54 | Anesthesia-General Post-Op ---
General Patient Condition Mental Status/LOC: Same as Preop Cardiovascular: Satisfactory Nausea/Vomiting: Absent Respiratory: Satisfactory Pain: Controlled Complications: Absent Post Op Complications Complications None Follow Up Care/Instructions Patient Instructions None needed. Anesthesia/Patient Condition Patient Condition Patient is doing well, no complaints, stable vital signs, no apparent adverse anesthesia problems. No complications reported per nursing. D/C home per [facility] [place] Criteria: Yes JOSE BOBBY CRNA Oct 31, 2021 16:54
[2021-11-01] MEDS ORDERED: FLU QUADRIvalent (3YOA+) 60 mcg/0.5 ml 2021-22(AFLURIA) IM ONE (07:15)
== END 2021-10-31 20:30 | disposition home or self-care (01) ==
LOC: EDUNIT# 12:05 → ER 12:06 → SDC 14:54 → 4TH 17:35 → SDC 20:30
PROVIDERS: ATTEND Surgery
DX: K42.0 Umbilical hernia with obstruction, without gangrene (principal); Z87.891 Personal history of nicotine dependence; E66.9 Obesity, unspecified; Z68.38 Body mass index [BMI] 38.0-38.9, adult; M62.08 Separation of muscle (nontraumatic), other site
CPT/HCPCS: 49653; 74177; 80053; 83690; 84703; 85025; 94664; 94760; 96374; 96375; 99285; C1781; 36415